=== PATIENT | female | born 1960 | race Caucasian/White ===

== ENCOUNTER 2018-04-16 18:44 | Emergency (ER) | payer OTHER, SELFPAY ==
[2018-04-16 18:49] VITALS: BP 158/88; PULSE 93; RESP 18; TEMP 36.7; O2SAT 94
--- NOTE | 2018-04-16 19:26 | W.ED.GENAD ---
Discharge Plan Disposition Patient Disposition: OTHER Discharge Details Chief Complaint: ETOHWithdr Clinical Impression: Acute alcohol intoxication Primary Care Provider: Sharon Arias ED Provider: Jona Miramontes Meds and Carlos A Rx's Prescriptions: No Action multivitamin [Daily Multi-Vitamin] 1 EACH tablet 1 ea PO DAILY RF: 0 cholecalciferol (vitamin D3) 1,000 UNIT tablet 1,000 unit PO DAILY RF: 0 milk thistle seed extract 200 MG capsule 480 mg PO DAILY RF: 0 lamotrigine [Lamictal] 25 MG tablet 25 mg PO DAILY Qty: 90 RF: 3 topiramate 100 MG tablet 100 mg PO BID Qty: 180 RF: 3 naltrexone 50 MG tablet 50 mg PO DAILY Qty: 90 RF: 0 nadolol 20 MG tablet 20 mg PO DAILY Qty: 90 RF: 3 nitrofurantoin macrocrystal [Macrodantin] 100 MG capsule 100 mg PO ONCE Qty: 12 RF: 3 folic acid 1 MG tablet 1 mg PO DAILY RF: 0 Discharge Instructions Instructions: Alcohol Intoxication (ED) Additional Instructions: Please stop abusing alcohol. Please followup with [facility] . Please contact your primary care physician to arrange follow-up. Return to the ER for any worsening or new concerning symptoms. Medical Decision Making <Kedar Mora MD - Last Filed: 04/16/18 20:11> [facility] Narrative Medical decision making narrative: 57yo female with history of alcohol here with acute alcohol intoxication and anxiety. No signs of which A medical screening exam was performed other than intoxication, I do not find any acute medical condition on assessment I spoke with Elyse at [facility] regarding PIP placement -she requests a blood alcohol level be checked. Plan will be for transfer was sure if to PIP bed. Flo Cary in [facility] and unfortunately no one was available tonight. I will provide contact information to [facility] to assist patient with rehab placement should she desire to pursue rehab. HPI - General Adult <Kedar Mora MD - Last Filed: 04/16/18 20:11> General Date/Time Provider Initiated Documentation: 04/16/18 18:54. Information obtained by: patient. HPI Narrative: 57-year-old female presents with acute intoxication with alcohol. Patient notes that she drank too much vodka today. Patient states that she drinks vodka daily. She has been to inpatient rehab in the past. Patient is specifically requesting Ativan at this time noting that she does feel anxious. Patient denies trauma. History is somewhat limited as patient is not forthcoming and is intoxicated Patient denies homicidality and suicidality. No hallucinations. Life stressors include recently left. Related Data Home Medications Medication Instructions Recorded Confirmed multivitamin [Daily Multi-Vitamin] 1 ea PO DAILY 02/14/16 04/16/18 cholecalciferol (vitamin D3) 1,000 unit PO DAILY 05/14/16 04/16/18 milk thistle seed extract 480 mg PO DAILY 05/14/16 04/16/18 Previous Rx's Medication Instructions Recorded folic acid 1 mg PO DAILY tab 04/30/17 lamotrigine [Lamictal] 25 mg PO DAILY #90 tab-cap 05/07/17 topiramate 100 mg PO BID #180 tab-cap 05/17/17 naltrexone 50 mg PO DAILY #90 tab-cap 07/22/17 nadolol 20 mg PO DAILY #90 tab-cap 08/09/17 nitrofurantoin macrocrystal 100 mg PO ONCE #12 cap 03/03/18 [Macrodantin] Allergies Allergy/AdvReac Type Severity Reaction Status Date / Time oxcarbazepine Allergy Skin Rash Unverified 04/16/18 18:53 [From Trileptal] meperidine HCl [From Demerol] AdvReac weird Unverified 04/16/18 18:53 dreams General Stated Complaint: ETOHWithdr JONNY: 3 Review of Systems <Kedar Mora MD - Last Filed: 04/16/18 20:11> Review of Systems ROS limited as patient not forthcoming with history. She denies pain. Cardiovascular Denies chest pain Gastrointestinal Denies abdominal pain, Denies nausea and Denies vomiting Neurologic Denies seizure-like activity Psychiatric Reports anxiety Exam <Kedar Mora MD - Last Filed: 04/16/18 20:11> Const General: anxious HENMT Head: normocephalic and atraumatic Eyes Pupils: PERRL Neck Neck: normal visual inspection Resp Effort & Inspection: normal respiratory effort Auscultation: clear to auscultation bilaterally Cardio Rate: regular rate Rhythm: regular rhythm Heart Sounds: S1 normal and S2 normal Skin Other: warm and dry Neuro General: alert, awake, tone normal, moves all extremities and other (no tremor) Speech: other (slurred) Gait: other (able to ambulate unassisted) Extrem General: no pedal edema Psych Speech and Movement: not agitated and slurred speech Affect: anxious affect Course <Kedar Mora MD - Last Filed: 04/16/18 20:11> Vital Signs Temperature 36.7 C 04/16/18 18:49 Pulse 93 H 04/16/18 18:49 Respiratory Rate 18 04/16/18 18:49 Blood Pressure 158/88 H 04/16/18 18:49 Pulse Oximetry 94 L 04/16/18 18:49 Temperature 36.7 C 04/16/18 18:49 Pulse 93 H 04/16/18 18:49 Respiratory Rate 18 04/16/18 18:49 Blood Pressure 158/88 H 04/16/18 18:49 Pulse Oximetry 94 L 04/16/18 18:49 Sign Out <Kedar Mora MD - Last Filed: 04/16/18 20:11> Sign Out Data: Sign Out Comment: Plan for transfer to PIP bed. Etoh level pending. Last updated by Kedar Mora MD at 04/16/18 20:09 Post-Handoff Eval: Patient signed out pending alcohol level which came back at 370. She was seen by mental health and has been taken into protective custody [facility] bed to sober up.
--- NOTE | 2018-04-16 19:40 | ED.GENADUL_ITS ---
Discharge Plan Disposition Patient Disposition: OTHER Discharge Details Chief Complaint: ETOHWithdr Clinical Impression: Acute alcohol intoxication Primary Care Provider: Sharon Arias ED Provider: Jona Miramontes Meds and Carlos A Rx's Prescriptions: No Action multivitamin [Daily Multi-Vitamin] 1 EACH tablet 1 ea PO DAILY RF: 0 cholecalciferol (vitamin D3) 1,000 UNIT tablet 1,000 unit PO DAILY RF: 0 milk thistle seed extract 200 MG capsule 480 mg PO DAILY RF: 0 lamotrigine [Lamictal] 25 MG tablet 25 mg PO DAILY Qty: 90 RF: 3 topiramate 100 MG tablet 100 mg PO BID Qty: 180 RF: 3 naltrexone 50 MG tablet 50 mg PO DAILY Qty: 90 RF: 0 nadolol 20 MG tablet 20 mg PO DAILY Qty: 90 RF: 3 nitrofurantoin macrocrystal [Macrodantin] 100 MG capsule 100 mg PO ONCE Qty: 12 RF: 3 folic acid 1 MG tablet 1 mg PO DAILY RF: 0 Discharge Instructions Instructions: Alcohol Intoxication (ED) Additional Instructions: Please stop abusing alcohol. Please followup with [facility] . Please contact your primary care physician to arrange follow-up. Return to the ER for any worsening or new concerning symptoms. Medical Decision Making <Kedar Mora MD - Last Filed: 04/16/18 20:11> [facility] Narrative Medical decision making narrative: 57yo female with history of alcohol here with acute alcohol intoxication and anxiety. No signs of which A medical screening exam was performed other than intoxication, I do not find any acute medical condition on assessment I spoke with Elyse at [facility] regarding PIP placement -she requests a blood alcohol level be checked. Plan will be for transfer was sure if to PIP bed. Flo Cary in [facility] and unfortunately no one was available tonight. I will provide contact information to [facility] to assist patient with rehab placement should she desire to pursue rehab. HPI - General Adult <Kedar Mora MD - Last Filed: 04/16/18 20:11> General Date/Time Provider Initiated Documentation: 04/16/18 18:54 . Information obtained by: patient . HPI Narrative: 57-year-old female presents with acute intoxication with alcohol. Patient notes that she drank too much vodka today. Patient states that she drinks vodka daily. She has been to inpatient rehab in the past. Patient is specifically requesting Ativan at this time noting that she does feel anxious. Patient denies trauma. History is somewhat limited as patient is not forthcoming and is intoxicated Patient denies homicidality and suicidality. No hallucinations. Life stressors include recently left. Related Data Home Medications Medication Instructions Recorded Confirmed multivitamin [Daily Multi-Vitamin] 1 ea PO DAILY 02/14/16 04/16/18 cholecalciferol (vitamin D3) 1,000 unit PO DAILY 05/14/16 04/16/18 milk thistle seed extract 480 mg PO DAILY 05/14/16 04/16/18 Previous Rx's Medication Instructions Recorded folic acid 1 mg PO DAILY tab 04/30/17 lamotrigine [Lamictal] 25 mg PO DAILY #90 tab-cap 05/07/17 topiramate 100 mg PO BID #180 tab-cap 05/17/17 naltrexone 50 mg PO DAILY #90 tab-cap 07/22/17 nadolol 20 mg PO DAILY #90 tab-cap 08/09/17 nitrofurantoin macrocrystal 100 mg PO ONCE #12 cap 03/03/18 [Macrodantin] Allergies Allergy/AdvReac Type Severity Reaction Status Date / Time oxcarbazepine Allergy Skin Rash Unverified 04/16/18 18:53 [From Trileptal] meperidine HCl [From Demerol] AdvReac weird Unverified 04/16/18 18:53 dreams General Stated Complaint: ETOHWithdr JONNY: 3 Review of Systems <Kedar Mora MD - Last Filed: 04/16/18 20:11> Review of Systems ROS limited as patient not forthcoming with history. She denies pain. Cardiovascular Denies chest pain Gastrointestinal Denies abdominal pain, Denies nausea and Denies vomiting Neurologic Denies seizure-like activity Psychiatric Reports anxiety Exam <Kedar Mora MD - Last Filed: 04/16/18 20:11> Const General: anxious HENMT Head: normocephalic and atraumatic Eyes Pupils: PERRL Neck Neck: normal visual inspection Resp Effort & Inspection: normal respiratory effort Auscultation: clear to auscultation bilaterally Cardio Rate: regular rate Rhythm: regular rhythm Heart Sounds: S1 normal and S2 normal Skin Other: warm and dry Neuro General: alert, awake, tone normal, moves all extremities and other (no tremor) Speech: other (slurred) Gait: other (able to ambulate unassisted) Extrem General: no pedal edema Psych Speech and Movement: not agitated and slurred speech Affect: anxious affect Course <Kedar Mora MD - Last Filed: 04/16/18 20:11> Vital Signs Temperature 36.7 C 04/16/18 18:49 Pulse 93 H 04/16/18 18:49 Respiratory Rate 18 04/16/18 18:49 Blood Pressure 158/88 H 04/16/18 18:49 Pulse Oximetry 94 L 04/16/18 18:49 Temperature 36.7 C 04/16/18 18:49 Pulse 93 H 04/16/18 18:49 Respiratory Rate 18 04/16/18 18:49 Blood Pressure 158/88 H 04/16/18 18:49 Pulse Oximetry 94 L 04/16/18 18:49 Sign Out <Kedar Mora MD - Last Filed: 04/16/18 20:11> Sign Out Data: Sign Out Comment: Plan for transfer to PIP bed. Etoh level pending. Last updated by Kedar Mora MD at 04/16/18 20:09 Post-Handoff Eval: Patient signed out pending alcohol level which came back at 370. She was seen by mental health and has been taken into protective custody [facility] to sober up.
[2018-04-16 20:17] LABS: ETHANOL BLOOD 369.6 mg/dL (<3)
[2018-04-16 20:49] VITALS: BP 110/70; PULSE 80; RESP 18; TEMP 36.8; O2SAT 96
== END 2018-04-16 20:52 | disposition other institution (70) ==
LOC: ER 20:24
PROVIDERS: Student in an Organized Health Care Education/Training Program; Emergency Provider Emergency Medicine; PCP Nurse Practitioner Family
DX: F10.129 Alcohol abuse with intoxication, unspecified (principal); Y90.8 Blood alcohol level of 240 mg/100 ml or more; F41.9 Anxiety disorder, unspecified; I10 Essential (primary) hypertension
CPT/HCPCS: 36415; 99285; 80320; 99283

== ENCOUNTER 2018-06-13 11:12 | Outpatient (REF) | payer OTHER, SELFPAY ==
--- NOTE | 2018-06-13 10:15 | PAPFT_PTH ---
PATIENT: Soila Martinez LOC: N U#:[id number] AGE/SX: 58/F ROOM: RE06/13/[address]: Sharon Arias APRN : 1960 BED: DIS: 06/13/2018 SPEC #: [id number] RECD: 06/13/18 12:51 STATUS: [place] REMax #: [id number] CHRISS: 06/13/18 10:[address]: Sharon Arias DEPT: [facility] Cytology RECD BY: Cathie Randall Tissues: 1 - CX/ENDOCX FOR PAP SMEARS Procedures: PAP THIN PREP/UVM Screening HPV DNA PROBE Comments: [id number]
== END 2018-06-13 11:32 ==
LOC: LBN 11:12
PROVIDERS: PCP Nurse Practitioner Family; Visit Provider Nurse Practitioner Family
DX: Z12.4 Encounter for screening for malignant neoplasm of cervix (principal); Z11.51 Encounter for screening for human papillomavirus (HPV)
CPT/HCPCS: 88142; 87624

== ENCOUNTER 2018-06-21 00:51 | Outpatient (CLI) | payer OTHER, SELFPAY ==
--- NOTE | 2018-06-21 11:55 | DI.MAMMO_ITS ---
SYMPTOM/DIAGNOSIS: SCREENING, Z12.31 MAMMOGRAMS: Mammograms were interpreted according to the usual protocol including computer analysis with CAD system, tomosynthesis and C view imaging. The breasts are heterogeneously dense. No dominant mass or clumped microcalcification is identified in either breast. The current examination is compared with previous examinations including 03/2016 and there has been no gross interval change in appearance in comparison with the previous studies. CONCLUSION: No specific evidence of malignancy at this time. Routine screening examinations are suggested at yearly intervals in this age group according to the ACS/ACR guidelines. Category 1. Breast density, category C. MQSA ASSESSMENT OF FINDINGS: Negative. Category 1. Patient will receive a letter notifying them of these results. Bi-RADS category C. The breasts are heterogeneously dense, which may obscure small masses.
== END 2018-06-21 01:11 ==
PROVIDERS: PCP Nurse Practitioner Family; Visit Provider Nurse Practitioner Family
DX: Z12.31 Encounter for screening mammogram for malignant neoplasm of breast (principal)
CPT/HCPCS: 77063; 77067

== ENCOUNTER 2018-12-30 18:59 | Emergency (ER) | payer OTHER, SELFPAY ==
[2018-12-30 19:19] VITALS: BP 123/66; PULSE 54; RESP 16; TEMP 36.7; O2SAT 96
--- NOTE | 2018-12-30 19:47 | DI.CT_ITS ---
SYMPTOM/DIAGNOSIS: TRAUMA CERVICAL SPINE CT: CT examination of the cervical spine was performed with multi slice acquisition and multi planar reconstruction. No gross cervical mass or adenopathy is seen. Visualized lung apices are clear. Tracheal laryngeal structures appear intact. There are degenerative changes of the cervical spine with prominent calcified disc posteriorly at C 4-5 which may cause a mild central canal spinal stenosis. No acute fracture or dislocation in the cervical region. CONCLUSION: No evidence of acute cervical fracture. Marked degenerative changes noted. NONCONTRAST HEAD CT: A noncontrast cranial CT was performed. There is mild cerebral atrophy, most prominent frontally. There is no evidence of acute intracranial hemorrhage, mass effect or midline shift. Note is made of an old right occipital craniotomy. 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 The orbital and temporal bone structures appear intact. The visualized paranasal sinuses and mastoid air cells appear clear except for minimal fluid opacification of a couple of right mastoid air cells. CONCLUSION: No evidence of acute intracranial injury.
--- NOTE | 2018-12-30 19:49 | ED.GENADUL_ITS ---
Discharge Plan Disposition Patient Disposition: HOME Condition: Fair Discharge Details Chief Complaint: HeadInjury Clinical Impression: Laceration of scalp, Contusion of head, Concussion Primary Care Provider: Sharon Arias ED Provider: Bernie Nieves Home Meds and New Rx's Prescriptions: Continued topiramate 100 mg tablet 100 mg PO BID Qty: 180 RF: 3 carvedilol 3.125 mg tablet 3.125 mg PO BID Qty: 180 RF: 3 Shingrix (PF) 50 mcg/0.5 mL suspension for reconstitution 50 mcg IM .COMPLEX Qty: 1 RF: 1 cholecalciferol (vitamin D3) 1,000 UNIT tablet 1,000 unit PO DAILY RF: 0 milk thistle seed extract 200 MG capsule 480 mg PO DAILY RF: 0 nitrofurantoin macrocrystal [Macrodantin] 100 MG capsule 100 mg PO ONCE Qty: 12 RF: 3 folic acid 1 MG tablet 1 mg PO DAILY RF: 0 Discharge Instructions Instructions: Laceration (ED), Concussion (ED), Staple Care (ED) Additional Instructions: Encourage hydration. Tylenol and ibuprofen as needed for discomfort. Wash wound with running water and soap. Please do not go swimming or soak. Please monitor for signs of infection including redness, warmth, drainage, increased pain, fever/chills. If these or other new/worsening symptoms arise please seek care urgently once again. Please return in 1 week for suture removal. Referrals: Sharon Arias, CRAFT SUPERINTENDENT [Primary Care Provider] - Discharge Data Discharge Date/Time-TO BE ENTERED AT DEPARTURE: 12/30/18 21:41 Medical Decision Making Patient is 58-year-old female, accompanied by her , with chief complaint of head injury. She reports that she is been drinking today, had a proximally half 1/5 of vodka. Reports that she subsequently fell when she tripped at the top of the steps. States that she fell and struck her head against a stone hearth. Believes that she lost consciousness. Unknown exactly what time she fell but was in the last 4 hours. and subsequently came home and found her on the couch with a large amount of blood in her shirt. Patient has a laceration to the occipital aspect of her scalp. Appears intoxicated. Having difficulty with memory, slow to answer questions. Patient is alert and oriented x3. She is not anticoagulated. Patient does have history of AVM malformation with surgical intervention. Plan for CT. Remaining trauma exam is benign Please see procedure note. #6 radha placed. Patient tolerated this well. CT reviewed with no acute focal intracranial lesions noted. Cervical normal, no acute fractures or subluxations Discussed the findings with the patient and her . I advised that given the headache and mechanism of injury, patient sustained concussion. We discussed postconcussive care. I advised that she try to abstain from physical exertion, avoid screens as much as possible. Encourage hydration. Advised that she avoid alcohol. Advised care of radha. In particular, we discussed signs symptoms of infection when to seek care urgently once again. She will return for staple removal. Also discussed symptoms of worsening intracranial pathology. Patient will be with her and he is able to monitor her and bring her back if needed. All the questions and concerns were addressed and they are in agreement this plan. HPI General Mode of arrival: ambulatory . Date/Time Provider Initiated Documentation: 12/30/18 19:47 . Limitations to Documentation: altered mental status (patient intoxicated) . Information obtained by: patient, family () and RN notes reviewed . History of Present Illness 58 year old F presents to the emergency department with the chief complaint of head injury, described as moderate, with intensity rated at 8. Quality is described as aching, and is localized to the head. Patient reports no radiation. Patient started experiencing this hour(s) and it has been constant. No relieving factors improve symptom(s), No exacerbating factors reported . Patient notes denies confusion ( reports she has been appropriate although intoxicated), chest pain, cough, nausea/vomiting, rash, shortness of breath and weakness. Patient did receive the following treatments prior to arrival, none Related Data Home Medications Medication Instructions Recorded Confirmed cholecalciferol (vitamin D3) 1,000 unit PO DAILY 05/14/16 12/30/18 milk thistle seed extract 480 mg PO DAILY 05/14/16 12/30/18 folic acid 1 mg PO DAILY tab 04/30/17 12/30/18 nitrofurantoin macrocrystal 100 mg PO ONCE #12 cap 03/03/18 12/30/18 [Macrodantin] topiramate 100 mg tablet 100 mg PO BID #180 tab-cap 05/16/18 12/30/18 carvedilol 3.125 mg tablet 3.125 mg PO BID #180 tab-cap 06/13/18 12/30/18 varicella-zoster glycoE [id number] 50 mcg IM .COMPLEX #1 each 06/13/18 12/30/18 adj(PF) 50 mcg/0.5 mL IM susp, kit Previous Rx's Medication Instructions Recorded folic acid 1 mg PO DAILY tab 04/30/17 nitrofurantoin macrocrystal 100 mg PO ONCE #12 cap 03/03/18 [Macrodantin] topiramate 100 mg tablet 100 mg PO BID #180 tab-cap 05/16/18 carvedilol 3.125 mg tablet 3.125 mg PO BID #180 tab-cap 06/13/18 varicella-zoster glycoE [id number] 50 mcg IM .COMPLEX #1 each 06/13/18 adj(PF) 50 mcg/0.5 mL IM susp, kit Allergies Allergy/AdvReac Type Severity Reaction Status Date / Time oxcarbazepine Allergy Skin Rash Unverified 12/30/18 19:26 [From Trileptal] meperidine HCl [From Demerol] AdvReac weird Unverified 12/30/18 19:26 dreams General Stated Complaint: HeadInjury JONNY: 3 Review of Systems Constitutional Reports as per HPI, Denies chills, Denies fatigue, Denies fever(s), Reports headache(s) and Denies weakness Eyes Reports as per HPI, Denies blurry vision, Denies change in vision and Denies loss of vision ENT Denies abnormal hearing and Reports headache(s) Cardiovascular Reports as per HPI, Denies chest pain and Denies dyspnea Respiratory Reports as per HPI, Denies cough, Denies pain on inspiration, Denies pain with cough and Denies dyspnea Gastrointestinal Reports as per HPI, Denies abdominal pain, Denies nausea and Denies vomiting Genitourinary Reports as per HPI and Denies urinary incontinence Musculoskeletal Reports as per HPI Integumentary/Breasts Reports as per HPI, Denies rash and Reports other (scalp laceration) Neurologic Reports as per HPI, Denies abnormal hearing, Denies abnormal movements, Denies abnormal speech, Reports headache(s), Denies lack of coordination, Denies focal weakness, Denies loss of vision, Denies seizure-like activity, Denies paresthesias and Denies weakness Endocrine Denies fatigue [facility] Medical History Alcoholic cirrhosis of liver without ascites (Chronic 06/17/16) Alcohol use disorder (Chronic) Anxiety and depression (Chronic) Vitamin D deficiency, unspecified (Chronic) Seizure disorder (Chronic 05/15/15) Portal hypertension (Chronic) Hypomagnesemia (Chronic 11/06/15) Hyperlipidemia (Chronic 07/20/16) Frequent UTI (Chronic) Essential hypertension (Chronic 05/15/15) Esophageal varices without bleeding (Chronic 07/01/04) Bradycardia (Chronic 06/11/17) 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) Alcoholism Cirrhosis, alcoholic Esophageal varices Frequent UTI HTN (hypertension) Lactose intolerance Type 2 diabetes mellitus Surgical History section Social History Smoking/Tobacco Use Status: Never Alcohol Intake: former Drug use: Never Substance use type: does not use Details: pt states has been drinking today Adopted: No Caregiver/Support person: No Foster care: No Household members: spouse Number of Children: 2 current occupation: In home care Pets and animals: Yes Pets and animals: dog(s) Sexually active: Yes Current gender identity: female What type of physical activity do you participate in: walking Duration: 45-60 minutes/day Frequency: 3-4 times per week Seatbelt use: always Drive intox or ride w/intox truck driver flatbed: No Water heater temp set <120 deg: Yes Working smoke detector in home: Yes Fire extinguisher in home: Yes Carbon monox detector in home: Yes Firearms in home: No Do you feel safe at home: Yes Do you feel safe in your relationship?: Yes Exam Const General: cooperative, healthy appearing, comfortable, no acute distress, well developed, well groomed and intoxicated appearing Nutritional Appearance: average body habitus and well nourished Orientation: alert, awake and oriented x3 HENMT Head: no palpable skull fracture, atraumatic, no Cottrell's sign, no contusions, no hematomas, laceration (occipital 5cm in length, not actively bleeding), no occipital foramen tenderness, no palpable skull fracture, no raccoon eyes and No periorbital ecchymosis Ears: hearing grossly normal bilaterally, external ears normal and TM's normal bilaterally General nose exam: external nose normal Face and sinus: normal facial exam and face symmetric Mouth: oral mucosae normal, lip normal and tongue normal Throat: posterior oropharynx normal Eyes General: appearance normal, both eyes and all related structures Visual Townsend: normal visual townsend by confrontation Alignment and Position: alignment normal Periorbital: periorbital findings normal Eyelids: eyelids normal Conjunctivae: conjunctivae normal Pupils: PERRL EOM: EOM intact bilaterally Neck Neck: normal visual inspection, full ROM, no lymphadenopathy, no meningeal signs, trachea midline and supple Chest Chest: normal inspection of the chest, normal palpation of entire chest wall, no crepitus and no localized rib tenderness Resp Effort & Inspection: normal respiratory effort, able to speak in complete sentences and no respiratory distress Auscultation: clear to auscultation bilaterally, no rales, no rhonchi and no wheezes Cardio Rate: regular rate Rhythm: regular rhythm Heart Sounds: S1 normal and S2 normal GI Inspection: normal to inspection, no abdominal wall ecchymosis, no edema and non-distended Palpation: soft, no hepatosplenomegaly, not firm, no guarding, no pulsatile masses, not rigid and nontender Auscultation: normal bowel sounds Back/Spine/Pelvis Back: no CVA tenderness Cervical Spine: normal cervical lordosis and cervical ROM normal Thoracic/Lumbar Spine: thoracic and lumbar spine normal to inspection, thoraco- lumbar ROM normal, No thoraco-lumbar ROM limited, No thoraco-lumbar spasm and No thoracic spinal tenderness Pelvis: no pain with anterior-posterior compression and no pain with lateral compression Skin General skin exam: no rashes or lesions noted Lesions: no lesions Rashes: no rashes Trauma: no lacerations or abrasions Wounds: no wounds Neuro General: alert, awake, oriented x3, gait normal, tone normal and moves all extremities Cranial Nerves: CN's II-XI intact bilaterally Cognition: normal cognition Speech: speech normal Gait: normal gait Motor: muscle tone normal throughout and strength 5/5 throughout Sensory Exam: no sensory deficits noted (no saddle paresthesias) Extrem General: normal to inspection, full ROM, normal capillary refill, no pedal edema and no calf tenderness Psych Appearance: grossly normal and well kempt Mental Status: mental status grossly normal Speech and Movement: speech and movement normal Course Vital Signs Temperature 36.7 C 12/30/18 19:19 Pulse 54 L 12/30/18 19:19 Respiratory Rate 16 12/30/18 19:19 Blood Pressure 123/66 12/30/18 19:19 Pulse Oximetry 96 12/30/18 19:19 Temperature 36.7 C 12/30/18 19:19 Temperature Source Temporal Artery Scan 12/30/18 19:19 Pulse 54 L 12/30/18 19:19 Respiratory Rate 16 12/30/18 19:19 Respiratory Effort 12/30/18 19:23 Respiratory Depth Normal 12/30/18 19:23 Respiratory Pattern Normal 12/30/18 19:23 Blood Pressure 123/66 12/30/18 19:19 Pulse Oximetry 96 12/30/18 19:19 Oxygen Delivery Method Room Air 12/30/18 19:19 Oxygen Flow Rate 0 12/30/18 19:19 Pain Level 8 12/30/18 19:23 Procedures Laceration Laceration 1: Site: scalp Size (cm): 5 Description: irregular and clean Depth: simple, single layer Local Anesthetic: Lidocaine 1% Amount of anesthesia used (mL): 5 Pre-repair: wound explored, irrigated extensively and deep structures intact Skin layer closed with: other (radha, #6 )
--- NOTE | 2018-12-30 21:07 | DI.VRAD_ITS ---
EXAM: CT Head Without Contrast EXAM DATE/TIME: 12/30/2018 7:48 PM CLINICAL HISTORY: 58 years old, female; Injury or trauma; Initial encounter; Abrasion; Injury details: Fall hit head open laceration TECHNIQUE: Imaging protocol: Axial computed tomography images of the head without contrast. Coronal and sagittal reformatted images were created and reviewed. COMPARISON: CT HEAD WITHOUT CONTRAST 12/04/2013 2:48 PM FINDINGS: Brain: No hemorrhage. No significant white matter disease. No edema. Ventricles: No ventriculomegaly. Bones/joints: Status post remote right occipital craniotomy. Sinuses: Unremarkablel as visualized. No acute sinusitis. Mastoid air cells: Unremarkable as visualized. No mastoid effusion. Soft tissues: Unremarkable. IMPRESSION: No acute focal intracranial lesions. EXAM: CT Cervical Spine Without Contrast EXAM DATE/TIME: 12/30/2018 7:48 PM CLINICAL HISTORY: 58 years old, female; Injury or trauma; Initial encounter; Abrasion; Injury details: Fall hit head open laceration TECHNIQUE: Imaging protocol: Axial computed tomography images of the cervical spine without contrast. Coronal and sagittal reformatted images were created and reviewed. COMPARISON: CT HEAD WITHOUT CONTRAST 12/04/2013 2:48 PM FINDINGS: Vertebrae: No acute fracture. Normal alignment. Discs/Spinal canal/Neural foramina: Degenerative changes with disc space narrowing and osteophyte formation, disc space narrowing is most prominent at C5-C6 level. Soft tissues: Unremarkable. Lungs: Lung apices are normal. IMPRESSION: No acute fractures or subluxations. Degenerative changes. Dictated and Authenticated by: Darion Metzger MD. Ordering:JETT Gibbs MD
[2018-12-30 21:39] VITALS: BP 117/68; PULSE 50; RESP 16; O2SAT 99
== END 2018-12-30 21:41 | disposition home or self-care (01) ==
PROVIDERS: Emergency Provider Physician Assistant; PCP Nurse Practitioner Family
DX: S06.0X9A Concussion with loss of consciousness of unspecified duration, initial encounter (principal); S01.01XA Laceration without foreign body of scalp, initial encounter; F10.10 Alcohol abuse, uncomplicated; W10.8XXA Fall (on) (from) other stairs and steps, initial encounter; I10 Essential (primary) hypertension; E11.9 Type 2 diabetes mellitus without complications
CPT/HCPCS: 12002; 99284; 70450; 72125

== ENCOUNTER 2019-01-06 14:18 | Emergency (ER) | payer OTHER, SELFPAY ==
[2019-01-06 14:23] VITALS: BP 131/86; PULSE 75; RESP 16; TEMP 36.6; O2SAT 96
--- NOTE | 2019-01-06 14:34 | ED.GENADUL_ITS ---
Discharge Plan Disposition Patient Disposition: HOME Condition: Good Discharge Details Chief Complaint: SutureRem Clinical Impression: Encounter for removal of sutures Primary Care Provider: Sharon Arias ED Provider: Mega Mcgovern Home Meds and New Rx's Prescriptions: No Action topiramate 100 mg tablet 100 mg PO BID Qty: 180 RF: 3 carvedilol 3.125 mg tablet 3.125 mg PO BID Qty: 180 RF: 3 Shingrix (PF) 50 mcg/0.5 mL suspension for reconstitution 50 mcg IM .COMPLEX Qty: 1 RF: 1 cholecalciferol (vitamin D3) 1,000 UNIT tablet 1,000 unit PO DAILY RF: 0 milk thistle seed extract 200 MG capsule 480 mg PO DAILY RF: 0 nitrofurantoin macrocrystal [Macrodantin] 100 MG capsule 100 mg PO ONCE Qty: 12 RF: 3 folic acid 1 MG tablet 1 mg PO DAILY RF: 0 Discharge Instructions Instructions: Acute Wound Care (ED) Additional Instructions: Continue to keep wound clean and dry and watch for any signs of infection return immediately if these occur. Otherwise follow-up with your primary care provider as needed for reassessment. You may resume your normal activities given that you are otherwise asymptomatic Referrals: Sharon Arias, [place] LO DRIVER [Primary Care Provider] - (As needed for reassessment) Discharge Data Discharge Date/Time-TO BE ENTERED AT DEPARTURE: 01/06/19 14:40 Medical Decision Making Patient presenting the emergency department for staple removal. Patient had a head injury approximately 1 weeks ago and had 6 radha placed into her scalp. Patient denies any complications states that she has had no headache or neurological change and otherwise feels great. 6 radha removed from patient's scalp without any complications and patient tolerated removal well. Discussed with patient to continue to watch for any signs of infection otherwise she is follow-up with primary care provider as needed. After discussion of diagnosis and plan of care patient has no further needs, questions, or concerns and states clear understanding to return to the emergency department for any worsening symptoms. HPI General Mode of arrival: ambulatory . Date/Time Provider Initiated Documentation: 01/06/19 14:25 . Limitations to Documentation: no limitations . Information obtained by: patient, RN notes reviewed and old records reviewed . History of Present Illness 58 year old F presents to the emergency department with the chief complaint of Staple removal, Quality is described as other (denies pain), Patient started experiencing this week(s) (1) Patient notes no other symptoms.. Related Data Home Medications Medication Instructions Recorded Confirmed cholecalciferol (vitamin D3) 1,000 unit PO DAILY 05/14/16 12/30/18 milk thistle seed extract 480 mg PO DAILY 05/14/16 12/30/18 folic acid 1 mg PO DAILY tab 04/30/17 12/30/18 nitrofurantoin macrocrystal 100 mg PO ONCE #12 cap 03/03/18 12/30/18 [Macrodantin] topiramate 100 mg tablet 100 mg PO BID #180 tab-cap 05/16/18 12/30/18 carvedilol 3.125 mg tablet 3.125 mg PO BID #180 tab-cap 06/13/18 12/30/18 varicella-zoster glycoE [id number] 50 mcg IM .COMPLEX #1 each 06/13/18 12/30/18 adj(PF) 50 mcg/0.5 mL IM susp, kit Previous Rx's Medication Instructions Recorded folic acid 1 mg PO DAILY tab 04/30/17 nitrofurantoin macrocrystal 100 mg PO ONCE #12 cap 03/03/18 [Macrodantin] topiramate 100 mg tablet 100 mg PO BID #180 tab-cap 05/16/18 carvedilol 3.125 mg tablet 3.125 mg PO BID #180 tab-cap 06/13/18 varicella-zoster glycoE [id number] 50 mcg IM .COMPLEX #1 each 06/13/18 adj(PF) 50 mcg/0.5 mL IM susp, kit Allergies Allergy/AdvReac Type Severity Reaction Status Date / Time oxcarbazepine Allergy Skin Rash Unverified 12/30/18 19:26 [From Trileptal] meperidine HCl [From Demerol] AdvReac weird Unverified 12/30/18 19:26 dreams General Stated Complaint: SutureRem JONNY: 5 Review of Systems Constitutional Denies chills and Denies fever(s) Musculoskeletal Denies arthralgias Integumentary/Breasts Reports as per HPI, Denies rash and Denies skin swelling [facility] Medical History Alcoholic cirrhosis of liver without ascites (Chronic 11/16/16) Alcohol use disorder (Chronic) Anxiety and depression (Chronic) Vitamin D deficiency, unspecified (Chronic) Seizure disorder (Chronic 05/15/15) Portal hypertension (Chronic) Hypomagnesemia (Chronic 11/06/15) Hyperlipidemia (Chronic 07/20/16) Frequent UTI (Chronic) Essential hypertension (Chronic 05/15/15) Esophageal varices without bleeding (Chronic 07/01/04) Bradycardia (Chronic 06/11/17) 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) Alcoholism Cirrhosis, alcoholic Esophageal varices Frequent UTI HTN (hypertension) Lactose intolerance Type 2 diabetes mellitus Surgical History section Family History Brother Mental disorder Social History Smoking/Tobacco Use Status: Never Alcohol Intake: former Drug use: Never Substance use type: does not use Details: pt states has been drinking today Adopted: No Caregiver/Support person: No Foster care: No Household members: spouse Number of Children: 2 current occupation: In home care Pets and animals: Yes Pets and animals: dog(s) Sexually active: Yes Current gender identity: female What type of physical activity do you participate in: walking Duration: 45-60 minutes/day Frequency: 3-4 times per week Seatbelt use: always Drive intox or ride 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 Water heater temp set <120 deg: Yes Working smoke detector in home: Yes Fire extinguisher in home: Yes Carbon monox detector in home: Yes Firearms in home: No Do you feel safe at home: Yes Do you feel safe in your relationship?: Yes Exam Const General: cooperative, comfortable and no acute distress Orientation: alert, awake and oriented x3 Skin Rashes: no rashes Trauma: laceration (Right occipital,healing well without erythema, purulence, dehiscence) Course Vital Signs Temperature 36.6 C 01/06/19 14:23 Pulse 75 01/06/19 14:23 Respiratory Rate 16 01/06/19 14:23 Blood Pressure 131/86 01/06/19 14:23 Pulse Oximetry 96 01/06/19 14:23 Temperature 36.6 C 01/06/19 14:23 Temperature Source Tympanic 01/06/19 14:23 Pulse 75 01/06/19 14:23 Respiratory Rate 16 01/06/19 14:23 Respiratory Effort 01/06/19 14:23 Blood Pressure 131/86 01/06/19 14:23 Blood Pressure Position Sitting 01/06/19 14:23 Pulse Oximetry 96 01/06/19 14:23 Oxygen Delivery Method Room Air 01/06/19 14:23 Oxygen Flow Rate 0 01/06/19 14:23 Pain Level 0 01/06/19 14:23
[2019-01-06 14:39] VITALS: BP 131/86; PULSE 75; RESP 16; TEMP 36.6; O2SAT 96
== END 2019-01-06 14:40 | disposition home or self-care (01) ==
PROVIDERS: Emergency Provider Nurse Practitioner Family; PCP Nurse Practitioner Family
DX: S01.01XD Laceration without foreign body of scalp, subsequent encounter (principal); W10.8XXD Fall (on) (from) other stairs and steps, subsequent encounter; Z48.02 Encounter for removal of sutures

== ENCOUNTER → 2019-02-03 08:57 | Outpatient (CLI) | payer OTHER, SELFPAY ==
[2019-02-03 09:16] LABS: Abs Immature Grans 0.01 k/cumm (0.0-0.09); Absolute Basophil Count 0.06 k/cumm (0.0-0.2); Absolute Eosinophil Count 0.15 k/cumm (0.0-0.7); Absolute Lymphocyte Count 1.15 k/cumm (1.2-3.4); Absolute Monocyte Count 0.33 k/cumm (0.11-0.7); Absolute Neutrophil Count 2.48 k/cumm (1.2-6.7); Basophils % 1.4; Eosinophils % 3.6; HCT 43.3 % (36.0-46.0); HGB 14.4 g/dL (12.0-15.5); Immature Grans % 0.2; Lymphocytes % 27.5; Mean Corp. HGB Concentration 33.3 g/dL (32.0-36.0); Mean Corpuscular Hemoglobin 29.9 pg (27.0-33.0); Mean Platelet Volume 9.5 fL (8.0-11.0); Monocytes % 7.9; Neutrophils % 59.4; Platelet Count 163 x1000/uL (130-400); RBC 4.81 m/cumm (4.00-5.20); RBC Distribution Width 14.7 % (11.7-14.6); White Blood Cell Count 4.18 k/cumm (4.4-10.8)
[2019-02-03 09:24] LABS: Prothrombin Time 9.9 sec (9.3-11.0)
[2019-02-03 10:12] LABS: ALT 20 U/L (12-78); AST 20 U/L (15-37); Albumin 3.4 g/dL (3.4-5.0); Alkaline Phosphatase 104 U/L (46-116); Anion Gap 10.1 mmol/L (3-11); BUN 17 mg/dL (7-18); Bilirubin, Total 0.7 mg/dL (0.2-1.0); CO2 26.9 mmol/L (21.0-32.0); CREATININE 0.91 mg/dL (0.55-1.02); Calcium 8.7 mg/dL (8.5-10.1); Chloride 110 mmol/L (98-107); Glucose 101 mg/dL (70-100); Potassium 4.1 mmol/L (3.5-5.1); Sodium 147 mmol/L (136-145); Total Protein 6.8 g/dL (6.4-8.2)
== END ==
PROVIDERS: PCP Nurse Practitioner Family; Visit Provider Nurse Practitioner Family
DX: K70.30 Alcoholic cirrhosis of liver without ascites (principal); R94.5 Abnormal results of liver function studies
CPT/HCPCS: 36415; 80053; 85025; 85610

== ENCOUNTER 2019-02-14 05:13 | Emergency (ER) | payer OTHER, SELFPAY ==
[2019-02-14 05:13] VITALS: BP 168/98; PULSE 88; RESP 16; TEMP 36.6; O2SAT 95
--- NOTE | 2019-02-14 05:25 | W.ED.GENAD ---
Discharge Plan Disposition Patient Disposition: HOME Condition: Stable Discharge Details Chief Complaint: Seizure Clinical Impression: Alcohol use disorder Primary Care Provider: Sharon Arias ED Provider: Nicolas Flores Home Meds and New Rx's Prescriptions: No Action topiramate 100 mg tablet 100 mg PO BID Qty: 180 RF: 3 Shingrix (PF) 50 mcg/0.5 mL suspension for reconstitution 50 mcg IM .COMPLEX Qty: 1 RF: 1 nitrofurantoin macrocrystal [Macrodantin] 100 mg capsule 100 mg PO ONCE Qty: 30 RF: 3 cholecalciferol (vitamin D3) 1,000 UNIT tablet 1,000 unit PO DAILY RF: 0 milk thistle seed extract 200 MG capsule 480 mg PO DAILY RF: 0 carvedilol 3.125 mg tablet 3.125 mg PO BID Qty: 180 RF: 3 folic acid 1 MG tablet 1 mg PO DAILY RF: 0 Discharge Instructions Instructions: Alcohol Use Disorder (ED) Additional Instructions: Please contact [facility] at [phone] if you want assistance with your alcohol use disorder. Also follow up with your primary care provider and you can also contact [facility] detox centers if you wish to pursue treatment. If you feel you are becoming more ill or are actively having severe withdrawal return to the emergency department for reevaluation Medical Decision Making 58 yo female with hx of seizure disorder, alcohol abuse, hld, who comes in with ems for reported seizures. EMs reports that she had an episode where she was shaking but awake and talking the entire time and what sounds based on report to have been a psychogenic seizure. She has a hx of seizures and states she has been taking her seizure meds and initially denied drinking alcohol for weeks but did have smell of alcohol on her breath. She told ems that she had multiple seizures yesterday but after I asked her further questions about the seizures and if they were witnessed she changed her story and states that she hasn't had seizures and that she is actually here because she would like to have detox for alcohol. She is caox4 and clinically sober on exam. She has no signs of trauma and a normal steady gait. I couldn't get a clear reason as to why she felt that she had to say initially she had seizures and she refused to give much detail to most questions. She denies si/hi and so do not feel she requires mental health eval. She has stable vitals, mild htn otherwise no tremors and hassteady gait so has no evidenec of active withdrawal so do not feel she meets admission criteria for tx of alcohol withdrawal. I advised her that for detox she has to call facilities herself and that I would give her numbers and numbers to local agencies that can assist her. She was advised that if she feels she is worsening or having worsening symptoms that suggest withdrawal she can always return to the emergency department for reevaluation Differential Diagnosis alcohol abuse, seizure disorder, request for detox HPI General Mode of arrival: EMS. Date/Time Provider Initiated Documentation: 02/14/19 05:25. Limitations to Documentation: no limitations. Information obtained by: patient. History of Present Illness 58 year old F presents to the emergency department with the chief complaint of wants help with detox, Patient started experiencing this day(s) (1) and it has been constant. No relieving factors improve symptom(s), No exacerbating factors reported . Patient notes no other symptoms.. Patient did receive the following treatments prior to arrival, none Related Data Home Medications Medication Instructions Recorded Confirmed cholecalciferol (vitamin D3) 1,000 unit PO DAILY 05/14/16 02/03/19 milk thistle seed extract 480 mg PO DAILY 05/14/16 02/03/19 folic acid 1 mg PO DAILY tab 04/30/17 02/03/19 topiramate 100 mg tablet 100 mg PO BID #180 tab-cap 05/16/18 02/03/19 varicella-zoster [id number] (PF) 50 50 mcg IM .COMPLEX #1 each 06/13/18 02/03/19 mcg/0.5 mL IM susp, kit carvedilol 3.125 mg tablet 3.125 mg PO BID #180 tab-cap 02/03/19 nitrofurantoin macrocrystal 100 mg 100 mg PO ONCE #30 tab-cap 02/03/19 02/03/19 capsule Previous Rx's Medication Instructions Recorded folic acid 1 mg PO DAILY tab 04/30/17 topiramate 100 mg tablet 100 mg PO BID #180 tab-cap 05/16/18 varicella-zoster [id number] (PF) 50 50 mcg IM .COMPLEX #1 each 06/13/18 mcg/0.5 mL IM susp, kit carvedilol 3.125 mg tablet 3.125 mg PO BID #180 tab-cap 02/03/19 nitrofurantoin macrocrystal 100 mg 100 mg PO ONCE #30 tab-cap 02/03/19 capsule Allergies Allergy/AdvReac Type Severity Reaction Status Date / Time oxcarbazepine Allergy Skin Rash Unverified 02/03/19 08:23 [From Trileptal] meperidine HCl [From Demerol] AdvReac weird Unverified 02/03/19 08:23 dreams General Stated Complaint: Seizure JONNY: 3 Review of Systems Review of Systems All systems reviewed & are unremarkable except as noted in HPI and below Constitutional Denies chills and Denies fever(s) Cardiovascular Denies chest pain and Denies dyspnea Respiratory Denies dyspnea Gastrointestinal Denies abdominal pain Musculoskeletal Denies joint swelling Integumentary/Breasts Denies rash Endocrine Denies heat intolerance [facility] Medical History (Updated 02/06/19 @ 08:15 by Sharon Arias NP) Alcohol use disorder (Chronic) Alcoholic cirrhosis of liver without ascites (Chronic 06/17/16) 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 07/31/16) Anxiety and depression (Chronic) Bradycardia (Chronic 06/11/17) Cirrhosis, alcoholic Esophageal varices Esophageal varices without bleeding (Chronic 07/01/04) Essential hypertension (Chronic 05/15/15) Frequent UTI Frequent UTI (Chronic) HTN (hypertension) Hyperlipidemia (Chronic 07/20/16) Hypomagnesemia (Chronic 11/06/15) IFG (impaired fasting glucose) (Chronic) Lactose intolerance Portal hypertension (Chronic) Seizure disorder (Chronic 05/15/15) Type 2 diabetes mellitus Vitamin D deficiency, unspecified (Chronic) Surgical History section Social History Smoking/Tobacco Use Status: Never Alcohol Intake: former Drug use: Never Substance use type: does not use Details: pt states has been drinking today Adopted: No Caregiver/Support person: No Foster care: No Household members: spouse Number of Children: 2 Communication Needs: None current occupation: In home care Pets and animals: Yes Pets and animals: dog(s) Sexually active: Yes Current gender identity: female What type of physical activity do you participate in: walking Duration: 45-60 minutes/day Frequency: 3-4 times per week Seatbelt use: always Drive intox or ride w/intox 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 Water heater temp set <120 deg: Yes Working smoke detector in home: Yes Fire extinguisher in home: Yes Carbon monox detector in home: Yes Firearms in home: No Do you feel safe at home: Yes Do you feel safe in your relationship?: Yes Exam Const General: no acute distress Orientation: alert HENMT Head: normal to inspection Ears: external ears normal General nose exam: external nose normal Mouth: moist mucous membranes Eyes General: appearance normal, both eyes and all related structures Neck Neck: normal visual inspection Resp Effort & Inspection: normal respiratory effort and able to speak in complete sentences Cardio Rate: regular rate Skin General skin exam: no rashes or lesions noted Neuro General: alert and oriented x3 Extrem General: normal to inspection Psych Affect: anxious affect Attitude: avoids eye contact Course Vital Signs Temperature 36.6 C 02/14/19 05:13 Pulse 88 02/14/19 05:13 Respiratory Rate 16 02/14/19 05:13 Blood Pressure 168/98 H 02/14/19 05:13 Pulse Oximetry 95 02/14/19 05:13 Temperature 36.6 C 02/14/19 05:13 Temperature Source Skin 02/14/19 05:13 Pulse 88 02/14/19 05:13 Respiratory Rate 16 02/14/19 05:13 Blood Pressure 168/98 H 02/14/19 05:13 Blood Pressure Position Sitting 02/14/19 05:13 Pulse Oximetry 95 02/14/19 05:13 Oxygen Delivery Method Room Air 02/14/19 05:13 Oxygen Flow Rate 0 02/14/19 05:13
--- NOTE | 2019-02-14 05:34 | NUR.NOTE ---
Nursing Note: Pt was very upset. Pt did not want to be discharged. Pt refused to take paperwork or let me go over her paperwork. Pt states stop talking Pt refused paperwork will mail it to her. Discharge paperwork along with a list of detox centers will be mailed out. Pt ambulated out the door with steady gait.
[2019-02-14 05:36] VITALS: BP 168/98; PULSE 88; RESP 16; O2SAT 95
== END 2019-02-14 05:34 | disposition home or self-care (01) ==
LOC: ER 05:34
PROVIDERS: Emergency Provider Emergency Medicine; PCP Nurse Practitioner Family
DX: G40.909 Epilepsy, unspecified, not intractable, without status epilepticus (principal); F10.10 Alcohol abuse, uncomplicated; I10 Essential (primary) hypertension
CPT/HCPCS: 99282

== ENCOUNTER 2019-02-18 10:26 | Emergency (ER) | payer OTHER, SELFPAY ==
[2019-02-18] VITALS (69 sets, daily range): BP systolic 71–187; BP diastolic 11–101; PULSE 68–98; RESP 16–29; TEMP 37; O2SAT 84–99
--- NOTE | 2019-02-18 10:35 | NUR.NOTE ---
at bedside for eval Nursing Note:
--- NOTE | 2019-02-18 10:39 | NUR.NOTE ---
Nursing Note: pt resting in bed, with MD at bedside to obtain HPI, pt states that she called the ambulance because her head and back hurts. pt states that her dog got into a fight with another dog three weeks ago and she fell and hit the back of her head when she tried to break them apart. Pt states that she also had a seizure this morning. pt states that she also has been abusing ETOH and marijuana. hx epilepsy.
--- NOTE | 2019-02-18 10:42 | DI.RAD_ITS ---
SYMPTOM/DIAGNOSIS: FALL, PAIN THORACIC SPINE: AP and lateral views. No acute fractures or subluxations are seen. There is a mild right convex curvature of the spine which may be positional vs scoliosis. Mild degenerative changes are seen in the spine. The paraspinal lines are intact. IMPRESSION: No acute fracture or subluxations in the thoracic spine.
--- NOTE | 2019-02-18 10:42 | DI.RAD_ITS ---
SYMPTOM/DIAGNOSIS: FALL. BACK PAIN LUMBAR SPINE: AP lateral, and bilateral oblique views. There are 5 lumbar type vertebral bodies. There is a compression deformity of the superior end plate of L2 with loss of approximately 10% of the height of the vertebral body. This is age indeterminate. No other acute fracture or dislocation is seen. Mild degenerative changes are seen in the spine. No spondylolysis or spondylolisthesis is seen. There are two rounded calcifications to the right of the L1, L2 disc space. These may represent vascular calcifications or gallstones. The soft tissues are unremarkable. Calcification in the abdominal aorta is noted. IMPRESSION: 1. Compression fracture deformity of the superior end plate of L2. This is age indeterminate. Follow up as clinically appropriate. This may include a CT scan and/or MRI, if no further films are available. 2. Calcifications to the right of the L1, L2 disc space. These may represent vascular calcifications vs gallstones.
--- NOTE | 2019-02-18 10:48 | DI.RAD_ITS ---
SYMPTOM/DIAGNOSIS: TTPJ ANTERIOR FRIAS RIGHT TIBIA AND FIBULA: There is an old healed distal fibular fracture. No acute fracture or dislocation or soft tissue abnormality is identified. IMPRESSION: No acute abnormality.
--- NOTE | 2019-02-18 10:49 | W.ED.GENAD ---
Discharge Plan Disposition Patient Disposition: HOME Condition: Improving Discharge Details Chief Complaint: Seizure Clinical Impression: Alcohol abuse, Hypomagnesemia, Acute hypokalemia Primary Care Provider: Sharon Arias ED Provider: Kedar Mora Home Meds and New Rx's Prescriptions: New chlordiazepoxide HCl 25 mg capsule 25 mg PO Q12H PRN (Reason: alcohol withdrawal) Qty: 13 RF: 0 thiamine HCl (vitamin B1) 100 mg tablet 100 mg PO DAILY Qty: 30 RF: 0 Continued topiramate 100 mg tablet 100 mg PO BID Qty: 180 RF: 3 nitrofurantoin macrocrystal [Macrodantin] 100 mg capsule 100 mg PO ONCE Qty: 30 RF: 3 cholecalciferol (vitamin D3) 1,000 UNIT tablet 1,000 unit PO DAILY RF: 0 milk thistle seed extract 200 MG capsule 480 mg PO DAILY RF: 0 carvedilol 3.125 mg tablet 3.125 mg PO BID Qty: 180 RF: 3 folic acid 1 MG tablet 1 mg PO DAILY RF: 0 Discharge Instructions Instructions: Hypokalemia (ED), Abuse of Alcohol (ED), Hypomagnesemia (ED) Additional Instructions: Please follow-up with [facility] nutritional health coach. Follow-up with your primary care physician. Call me on my arrange timely follow-up. Stop abusing alcohol. Use medication prescribed as a taper. Return to the ER for any worsening or new concerning symptoms. Referrals: Sharon Arias NP [Primary Care Provider] - Discharge Data Discharge Date/Time-TO BE ENTERED AT DEPARTURE: 02/18/19 17:55 Medical Decision Making 11:00 --58-year-old female with multiple medical problems including history of alcohol abuse, here after consuming vodka this morning with complaint of back pain and headache after fall 2 weeks ago. Patient also notes seizure today. Patient has had recent ED presentations where she initially complained of various things and was ultimately determined that she was here seeking inpatient detox. Patient is not currently in alcohol withdrawal. She in fact appears mildly intoxicated. I will check an alcohol level. I will give thiamine 100 mg IV. IV fluid. I will consult nutritional health coach regarding alcohol. Given her recent fall and challenging history with questionable reliability consider acute life-threatening intracranial traumatic hemorrhage. Plan to obtain CT of the head. Patient has diffuse back tenderness and does not seem to have any focal area that is particularly tender. She does have some bruising over her left thoracic upper back. I will check x-rays of the thoracic and lumbar spine. No cervical tenderness and full range of motion of the neck. Patient also notes some pain right anterior obrien. She is tender anterior obrien with some ecchymosis. Consider fracture. I will obtain x-ray. 12:30 --CT head interpreted by radiology: No acute intracranial abnormality. Stable right cerebellar atrophy.. X-ray of the lumbar spine interpreted by radiology: Anterior wedging L2 vertebral body age indeterminate. Calcifications to the right L1 and L2 vertebral body may represent gallstones or vascular calcifications. X-ray of the thoracic spine interpreted by radiology: No evidence for acute bony abnormality. Labs were reviewed and hypomagnesemia noted. Hypokalemia noted per. Plan to give magnesium 2 g IV. Will then follow with potassium IV. Patient did have some nausea here. She was given Zofran 4 mg IV and Ativan 1 mg IV. Patient notes that she is feeling better. head strength and conditioning coach is speaking with the patient. -- Repeat labs with improved potassium and magnesium now WNL. All results reviewed with the patient. Patient is to follow-up with her primary care physician. I encouraged her to call on Wednesday to arrange timely follow-up. Patient is also can be following up with nutritional health coach for further treatment of alcoholism. Disposition decision was made weighing the risks and benefits of hospitalization versus outpatient treatment, the risk for further decompensation, and the patient's wishes. The patient was stable and requested discharge. Prior to discharge, my usual and customary return precautions were reviewed with the patient - this included follow-up instructions and reason to return to the emergency department if condition worsens, does not improve as expected, or other new concerns arise. HPI General Mode of arrival: EMS. Date/Time Provider Initiated Documentation: 02/18/19 10:27. Limitations to Documentation: no limitations. Information obtained by: patient and EMS. HPI Narrative: 58-year-old female with history of multiple medical problems including alcohol use disorder, alcoholic cirrhosis, hypertension, seizure disorder, here with chief complaint of back pain. Patient notes that she fell about 2 weeks ago and injured her back during the fall. She notes she was walking her dog and got caught up in the lesion fell. She did hit her head. She did not black out. She has had associated headache over the past couple weeks. Patient does admit that she started drinking again and is been drinking excessively on a daily basis. She drank vodka this morning. History and review of systems is limited secondary to unreliable historian and concern for potential acute alcohol intoxication. Patient is interested in alcohol detox. Patient was seen here on 02/14/2019 in the ED and initially presented with various complaints and was ultimately determined that she was here seeking detoxification. She did not relay history of fall or back pain or headache at that time. When questioned about this, she specifically notes that she has not told anybody about her discomfort related to this fall. After inquiring patient also notes that she had a seizure this morning. Related Data Home Medications Medication Instructions Recorded Confirmed cholecalciferol (vitamin D3) 1,000 unit PO DAILY 05/14/16 02/18/19 milk thistle seed extract 480 mg PO DAILY 05/14/16 02/18/19 folic acid 1 mg PO DAILY tab 04/30/17 02/18/19 topiramate 100 mg tablet 100 mg PO BID #180 tab-cap 05/16/18 02/18/19 carvedilol 3.125 mg tablet 3.125 mg PO BID #180 tab-cap 02/03/19 02/18/19 nitrofurantoin macrocrystal 100 mg 100 mg PO ONCE #30 tab-cap 02/03/19 02/18/19 capsule chlordiazepoxide HCl 25 mg PO Q12H PRN #13 cap 02/18/19 thiamine HCl (vitamin B1) 100 mg PO DAILY #30 tab 02/18/19 Previous Rx's Medication Instructions Recorded folic acid 1 mg PO DAILY tab 04/30/17 topiramate 100 mg tablet 100 mg PO BID #180 tab-cap 05/16/18 carvedilol 3.125 mg tablet 3.125 mg PO BID #180 tab-cap 02/03/19 nitrofurantoin macrocrystal 100 mg 100 mg PO ONCE #30 tab-cap 02/03/19 capsule chlordiazepoxide HCl 25 mg PO Q12H PRN #13 cap 02/18/19 thiamine HCl (vitamin B1) 100 mg PO DAILY #30 tab 02/18/19 Allergies Allergy/AdvReac Type Severity Reaction Status Date / Time oxcarbazepine Allergy Skin Rash Unverified 02/03/19 08:23 [From Trileptal] meperidine HCl [From Demerol] AdvReac ahsan Unverified 02/03/19 08:23 dreams General Stated Complaint: Seizure JONNY: 3 Review of Systems Review of Systems Unreliable, patient is noting pain all over. She denies chest pain. No shortness of breath. No abdominal pain. No focal numbness or weakness. [facility] Medical History Alcohol use disorder (Chronic) Alcoholic cirrhosis of liver without ascites (Chronic 06/17/16) Alcoholism [id number] deficiency carrier (Chronic 07/31/16) Anxiety and depression (Chronic) Bradycardia (Chronic 06/11/17) Cirrhosis, alcoholic Esophageal varices Esophageal varices without bleeding (Chronic 07/01/04) Essential hypertension (Chronic 05/15/15) Frequent UTI Frequent UTI (Chronic) HTN (hypertension) Hyperlipidemia (Chronic 07/20/16) Hypomagnesemia (Chronic 11/06/15) IFG (impaired fasting glucose) (Chronic) Lactose intolerance Portal hypertension (Chronic) Seizure disorder (Chronic 05/15/15) Type 2 diabetes mellitus Vitamin D deficiency, unspecified (Chronic) Surgical History section Family History Brother Mental disorder Social History Smoking/Tobacco Use Status: Never Alcohol Intake: former Drug use: Never Substance use type: does not use Details: pt states has been drinking today Adopted: No Caregiver/Support person: No Foster care: No Household members: spouse Number of Children: 2 Communication Needs: None current occupation: In home care Pets and animals: Yes Pets and animals: dog(s) Sexually active: Yes Current gender identity: female What type of physical activity do you participate in: walking Duration: 45-60 minutes/day Frequency: 3-4 times per week Seatbelt use: always Drive intox or ride w/intox 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 Water heater temp set <120 deg: Yes Working smoke detector in home: Yes Fire extinguisher in home: Yes Carbon monox detector in home: Yes Firearms in home: No Do you feel safe at home: Yes Do you feel safe in your relationship?: Yes Exam Const General: cooperative and no acute distress HENMT Head: normocephalic and atraumatic Mouth: moist mucous membranes Eyes Conjunctivae: normal conjunctivae Sclera: normal sclerae EOM: EOM intact bilaterally Neck Neck: supple Resp Auscultation: clear to auscultation bilaterally, no rales, no rhonchi and no wheezes Cardio Jugular venous pressure: no JVD Rate: regular rate and not tachycardic Rhythm: regular rhythm Heart Sounds: murmur systolic II/ GI Palpation: soft, not firm, no guarding, no masses, not rigid and nontender Back/Spine/Pelvis Back: back tenderness (diffusely mild tenderness) Skin General skin exam: no rashes or lesions noted Neuro General: alert, awake, moves all extremities and CN's II-XI intact bilaterally Cranial Nerves: CN's II-XI intact bilaterally Motor: strength 5/5 throughout Sensory Exam: no sensory deficits noted Other: mild confusion Extrem General: no edema Right lower extremity: lower leg Details: tenderness (anterior obrien) and ecchymosis (ant obrien) Psych Affect: anxious affect Course Vital Signs Pulse Oximetry 96 02/18/19 10:20 Temperature 37.0 C 02/18/19 10:27 Temperature Source Temporal Artery Scan 02/18/19 10:27 Pulse 91 H 02/18/19 10:27 Respiratory Rate 16 02/18/19 10:27 Respiratory Effort Non-Labored 02/18/19 10:27 Respiratory Depth Normal 02/18/19 10:27 Blood Pressure 163/70 H 02/18/19 10:27 Blood Pressure Position Supine 02/18/19 10:27 Pulse Oximetry 99 02/18/19 10:27 Oxygen Delivery Method Room Air 02/18/19 10:27 Oxygen Flow Rate 0 02/18/19 10:27
[2019-02-18] MEDS: THIAMINE 100 MG in Normal Saline 100 ML 200 MG IVPB (10:59)
[2019-02-18] MEDS: Normal Saline 1,000 ML 1000 ML IV (11:00)
[2019-02-18 11:18] LABS: Absolute Basophil Count 0.05 k/cumm (0.0-0.2); Absolute Eosinophil Count 0.01 k/cumm (0.0-0.7); Absolute Monocyte Count 0.33 k/cumm (0.11-0.7); Absolute Neutrophil Count 1.98 k/cumm (1.2-6.7); Basophils % 1.6; Eosinophils % 0.3; HCT 41.4 % (36.0-46.0); HGB 14.1 g/dL (12.0-15.5); Lymphocytes % 25.2; Mean Corp. HGB Concentration 34.1 g/dL (32.0-36.0); Mean Corpuscular Hemoglobin 29.8 pg (27.0-33.0); Mean Corpuscular Volume 87.5 fL (80-95); Mean Platelet Volume 10.3 fL (8.0-11.0); Monocytes % 10.4; Neutrophils % 62.5; RBC 4.73 m/cumm (4.00-5.20); RBC Distribution Width 14.2 % (11.7-14.6); White Blood Cell Count 3.17 k/cumm (4.4-10.8)
--- NOTE | 2019-02-18 11:20 | DI.CT_ITS ---
SYMPTOM/DIAGNOSIS: FALL, HEADACHE CT BRAIN: Noncontrast. Comparison 12/30/18 There is again seen a small area of encephalomalacia involving the right cerebellum The ventricles and sulci are consistent with the patient's age. No acute territorial infarct, hemorrhage, midline shift or mass effect is identified. The ventricles are intact. The basilar cisterns are patent. There is an old right occipital craniotomy. No evidence of an acute fracture is seen. The visualized paranasal sinuses are clear as are the mastoid air cells. IMPRESSION: No acute intracranial process.
--- NOTE | 2019-02-18 11:22 | NUR.NOTE ---
Nursing Note: pt to CT
[2019-02-18 11:28] LABS: ALT 33 U/L (12-78); AST 54 U/L (15-37); Albumin 3.3 g/dL (3.4-5.0); Alkaline Phosphatase 106 U/L (46-116); Anion Gap 19.5 mmol/L (3-11); BUN 14 mg/dL (7-18); Bilirubin, Total 1.1 mg/dL (0.2-1.0); CO2 19.5 mmol/L (21.0-32.0); CREATININE 0.68 mg/dL (0.55-1.02); Calcium 8.8 mg/dL (8.5-10.1); Chloride 101 mmol/L (98-107); Glucose 130 mg/dL (70-100); Magnesium 1.3 mg/dL (1.8-2.4); Sodium 140 mmol/L (136-145); Total Protein 6.8 g/dL (6.4-8.2)
[2019-02-18 11:32] LABS: Potassium 2.9 mmol/L (3.5-5.1)
[2019-02-18 11:39] LABS: Platelet Count 59 x1000/uL (130-400)
[2019-02-18 11:42] LABS: INR 1.1 (0.9-1.1); Prothrombin Time 11.4 sec (9.3-11.0)
[2019-02-18] MEDS: MAGNESIUM SULFATE 2 GM/50 ML BAG IVPB (11:45)
[2019-02-18] MEDS: Ondansetron 4 MG/2 ML VIAL IVP (11:48)
[2019-02-18] MEDS: LORazepam 2 MG/ML VIAL 1 MG IVP (11:49)
--- NOTE | 2019-02-18 12:16 | DI.VRAD_ITS ---
EXAM: CT Head Without Contrast EXAM DATE/TIME: 02/18/2019 10:47 AM CLINICAL HISTORY: 58 years old, female; Pain; Headache not specified; Patient HX: Fall, headache TECHNIQUE: Imaging protocol: Computed tomography images of the head without contrast. Coronal and sagittal reformatted images were created and reviewed. Radiation optimization: All CT scans at this facility use at least one of these dose optimization techniques: automated exposure control; mA and/or kV adjustment per patient size (includes targeted exams where dose is matched to clinical indication); or iterative reconstruction. COMPARISON: CT HEAD CERVICAL SPINE WO 30/12/2018 20:15 FINDINGS: Brain: Stable right cerebellar atrophy. Ventricles: Unremarkable. No ventriculomegaly. Bones/joints: Old right occipital craniotomy. Sinuses: Visualized sinuses are unremarkable. No fluid levels. Mastoid air cells: Visualized mastoid air cells are well aerated. No mastoid effusion. Soft tissues: Unremarkable. IMPRESSION: No acute intracranial abnormality. Dictated and Authenticated by: Kalina Sheehan MD. Ordering:SARAH Thacker MD
--- NOTE | 2019-02-18 12:25 | DI.VRAD_ITS ---
EXAM: XR Lumbosacral Spine, 4 or 5 Views EXAM DATE/TIME: 02/18/2019 10:47 AM CLINICAL HISTORY: 58 years old, female; Patient HX: Low back pain, fell on right side. TECHNIQUE: Imaging protocol: XR of the lumbosacral spine, 4 or 5 views. COMPARISON: No relevant prior studies available. FINDINGS: Vertebrae: There are rounded calcifications to the right is L1-L2 vertebral bodies that could represent vascular calcifications or gallstones. There is anterior wedging of L2 vertebral body. Vasculature: There is calcification of the aorta. Soft tissues: Unremarkable. IMPRESSION: 1. Anterior wedging L2 vertebral body age indeterminate. 2. Calcifications to the right of L1 and 2 vertebral body may represent gall stones or vascular calcifications. Dictated and Authenticated by: Kalina Sheehan MD. Ordering:SARAH Thacker MD
--- NOTE | 2019-02-18 12:28 | DI.VRAD_ITS ---
EXAM: XR Thoracic Spine, 3 Views EXAM DATE/TIME: 02/18/2019 10:47 AM CLINICAL HISTORY: 58 years old, female; Pain in thoracic spine; Other: After fall TECHNIQUE: Imaging protocol: XR of the thoracic spine, 3 views. COMPARISON: No relevant prior studies available. FINDINGS: Vertebrae: Minimal scoliosis of the thoracic spine. There is mild degenerative changes at all levels of the thoracic spine. There is no evidence for acute fracture or subluxation. Soft tissues: Unremarkable. IMPRESSION: No evidence for acute bony injury. Dictated and Authenticated by: Kalina Sheehan MD. Ordering:SARAH Thacker MD
--- NOTE | 2019-02-18 12:30 | DI.VRAD_ITS ---
EXAM: XR Right Tibia and Fibula EXAM DATE/TIME: 02/18/2019 10:49 AM CLINICAL HISTORY: 58 years old, female; Lower leg; Patient HX: Right leg pain after fall on right side. TECHNIQUE: Imaging protocol: XR Right tibia and fibula. Views: 2 views. COMPARISON: No relevant prior studies available. FINDINGS: Bones/joints: There is a healed old fracture of the distal fibula. There is no evidence for acute bony injury. Soft tissues: Unremarkable. IMPRESSION: No evidence for acute bony injury. Dictated and Authenticated by: Kalina Sheehan MD. Ordering:SARAH Thacker MD
--- NOTE | 2019-02-18 12:38 | NUR.NOTE ---
Nursing Note: pt reports moderate improvement in symptoms after Ativan. cross country/track and field coach at bedside.
[2019-02-18] MEDS: Potassium Chloride 10 MEQ TABCR 20 MEQ PO (13:44)
[2019-02-18] MEDS: POTASSIUM CHLORIDE 20 MEQ/100 ML BAG 50 MEQ IVPB (13:46)
[2019-02-18 16:34] LABS: Anion Gap 10.3 mmol/L (3-11); BUN 11 mg/dL (7-18); CO2 21.7 mmol/L (21.0-32.0); CREATININE 0.48 mg/dL (0.55-1.02); Calcium 8.2 mg/dL (8.5-10.1); Chloride 106 mmol/L (98-107); Glucose 82 mg/dL (70-100); Potassium 4.4 mmol/L (3.5-5.1); Sodium 138 mmol/L (136-145)
--- NOTE | 2019-02-18 17:06 | NUR.NOTE ---
Nursing Note: call out to lab to add Magnesium level
[2019-02-18 17:16] LABS: Magnesium 1.8 mg/dL (1.8-2.4)
--- NOTE | 2019-02-18 17:30 | NUR.NOTE ---
Nursing Note: blood pressure 71/30 entered in ERROR. PT IS NOT HYPOTENSIVE
--- NOTE | 2019-02-19 03:39 | NUR.NOTE ---
Nursing Note: faxed referal to [facility] internal 02/19/19
== END 2019-02-18 17:55 | disposition home or self-care (01) ==
PROVIDERS: Emergency Provider Student in an Organized Health Care Education/Training Program; PCP Nurse Practitioner Family
DX: E83.42 Hypomagnesemia (principal); E87.6 Hypokalemia; F10.10 Alcohol abuse, uncomplicated; G40.909 Epilepsy, unspecified, not intractable, without status epilepticus; M54.5 Low back pain; W19.XXXA Unspecified fall, initial encounter; Y93.K1 Activity, walking an animal; I10 Essential (primary) hypertension; E11.9 Type 2 diabetes mellitus without complications
CPT/HCPCS: 36415; 80048; 80053; 93005; 96361; 96365; 96368; 99285; 70450; 72072; 72110; 73590; 80320; 83735; 85025; 85610; 93010; 99284; J2060; J2405; J3480

== ENCOUNTER 2019-03-05 18:05 | Emergency (ER) | payer OTHER, SELFPAY ==
[2019-03-05] VITALS (22 sets, daily range): BP systolic 115–134; BP diastolic 67–82; PULSE 53–81; RESP 12–23; TEMP 36.5; O2SAT 87–97
[2019-03-05 19:22] LABS: Abs Immature Grans 0.02 k/cumm (0.0-0.09); Absolute Basophil Count 0.14 k/cumm (0.0-0.2); Absolute Eosinophil Count 0.02 k/cumm (0.0-0.7); Absolute Lymphocyte Count 1.95 k/cumm (1.2-3.4); Absolute Neutrophil Count 3.04 k/cumm (1.2-6.7); Basophils % 2.6; Eosinophils % 0.4; HCT 45.4 % (36.0-46.0); HGB 15.2 g/dL (12.0-15.5); Immature Grans % 0.4; Lymphocytes % 35.6; Mean Corp. HGB Concentration 33.5 g/dL (32.0-36.0); Mean Corpuscular Hemoglobin 29.9 pg (27.0-33.0); Mean Corpuscular Volume 89.2 fL (80-95); Mean Platelet Volume 9.1 fL (8.0-11.0); Monocytes % 5.5; Neutrophils % 55.5; Platelet Count 149 x1000/uL (130-400); RBC 5.09 m/cumm (4.00-5.20); RBC Distribution Width 15.3 % (11.7-14.6); White Blood Cell Count 5.47 k/cumm (4.4-10.8)
[2019-03-05] MEDS: Ondansetron 4 MG/2 ML VIAL (19:32)
[2019-03-05 19:36] LABS: ALT 99 U/L (12-78); AST 67 U/L (15-37); Albumin 3.1 g/dL (3.4-5.0); Alkaline Phosphatase 94 U/L (46-116); Anion Gap 11.4 mmol/L (3-11); BUN 5 mg/dL (7-18); Bilirubin, Total 0.3 mg/dL (0.2-1.0); CO2 26.6 mmol/L (21.0-32.0); CREATININE 0.73 mg/dL (0.55-1.02); Calcium 7.9 mg/dL (8.5-10.1); Chloride 115 mmol/L (98-107); Glucose 124 mg/dL (70-100); Potassium 3.1 mmol/L (3.5-5.1); Sodium 153 mmol/L (136-145)
[2019-03-05 19:51] LABS: ETHANOL BLOOD 484.5 mg/dL (<3)
[2019-03-05] MEDS: Normal Saline 1,000 ML 1000 ML IV (19:53)
[2019-03-05 20:32] LABS: Bilirubin Negative (Negative); Blood Negative (Negative); Clarity Clear (Clear); Glucose Negative (Negative); Ketones Negative (Negative); Leukocyte Esterase Negative (Negative); Nitrite Negative (Negative); Urobilinogen 0.2 EU/dL (Up TO 0.2)
[2019-03-05 20:58] LABS: *AMPHETAMINES SCREEN URINE Negative (Negative); *BARBITURATES SCREEN URINE Negative (Negative); *BENZODIAZEPINES SCREEN URINE POSITIVE (Negative); Cannabinoids THC Negative (Negative); Cocaine Screen,Urine Negative (Negative); METHADONE URINE SCREEN Negative (Negative); OPIATES URINE SCREEN Negative (Negative)
[2019-03-05 21:02] LABS: Tricyclic Antidepressants Negative (Negative)
--- NOTE | 2019-03-05 21:20 | DI.RAD_ITS ---
SYMPTOMS/DIAGNOSIS: PAIN THORACIC SPINE: There is no evidence of fracture. The alignment appears normal. The visualized portions of the lungs appear clear. There is minimal scoliosis. IMPRESSION: No acute abnormality.
--- NOTE | 2019-03-05 21:53 | ED.GENADUL_ITS ---
Discharge Plan Disposition Patient Disposition: OTHER Condition: Stable Discharge Details Chief Complaint: AMS/LOC Clinical Impression: Alcohol use disorder Primary Care Provider: Sharon Arias ED Provider: Nicolas Flores Home Meds and New Rx's Prescriptions: No Action lamotrigine [Lamictal] 25 mg tablet 25 mg PO DAILY Qty: 90 RF: 0 acetaminophen 500 mg tablet 500 - 1,000 mg PO BID MDD 2000 mg PRN (Reason: pain) Qty: 90 RF: 0 topiramate 100 mg tablet 100 mg PO BID Qty: 180 RF: 3 nitrofurantoin macrocrystal [Macrodantin] 100 mg capsule 100 mg PO ONCE Qty: 30 RF: 3 cholecalciferol (vitamin D3) 1,000 UNIT tablet 1,000 unit PO DAILY RF: 0 milk thistle seed extract 200 MG capsule 480 mg PO DAILY RF: 0 carvedilol 3.125 mg tablet 3.125 mg PO BID Qty: 180 RF: 3 chlordiazepoxide HCl 25 mg capsule 25 mg PO Q12H PRN (Reason: alcohol withdrawal) Qty: 13 RF: 0 thiamine HCl (vitamin B1) 100 mg tablet 100 mg PO DAILY Qty: 30 RF: 0 folic acid 1 MG tablet 1 mg PO DAILY RF: 0 Discharge Instructions Instructions: Abuse of Alcohol (ED) Discharge Data Discharge Date/Time-TO BE ENTERED AT DEPARTURE: 03/05/19 23:45 Medical Decision Making <Mega Mcgovern NP - Last Filed: 03/06/19 10:29> Patient presenting to the emergency department at request of patient's neighbor due to being intoxicated and difficult to arouse. Patient appears severely intoxicated making it difficult for documentation but she states that she fell a couple days ago and her back hurts. Physical exam is unremarkable except for mid thoracic tenderness to her spine without step-off deformity, no focal neurological deficits are noted through limited exam but patient is moving all extremities. Plan to check labs and radiological imaging. Pending results patient given IV fluids per Review of labs show a severely intoxicated patient with ethanol level of 484, UDS does show patient is positive for benzos, UA is otherwise nondiagnostic, pat ient does have slightly elevated sodium, low potassium, elevated chloride, slightly elevated anion gap. Labs are otherwise unremarkable. Pending radiological imaging patient was asked if she had a consenting adult to be ordered to take her home and she stated she was not able to. Mental health was call assess patient for safety placement at the custodial if no consenting adult was able to take her. Radiological imaging and results were reviewed and no acute fractures noted. <Nicolas Flores MD - Last Filed: 03/05/19 23:07> pt clinically sober now and alcohol level is under 300, no neuro deficits, no si/hi. Will go to holding cell until sober HPI <Mega Mcgovern NP - Last Filed: 03/06/19 10:29> General Mode of arrival: EMS . Date/Time Provider Initiated Documentation: 03/05/19 18:22 . Limitations to Documentation: altered mental status . Information obtained by: EMS and RN notes reviewed . History of Present Illness 58 year old F presents to the emergency department with the chief complaint of Alcohol intoxication, described as similar to prior episodes, and is localized to the back. and it has been constant. Related Data Home Medications Medication Instructions Recorded Confirmed cholecalciferol (vitamin D3) 1,000 unit PO DAILY 05/14/16 02/18/19 milk thistle seed extract 480 mg PO DAILY 05/14/16 02/18/19 folic acid 1 mg PO DAILY tab 04/30/17 02/18/19 topiramate 100 mg tablet 100 mg PO BID #180 tab-cap 05/16/18 02/18/19 carvedilol 3.125 mg tablet 3.125 mg PO BID #180 tab-cap 02/03/19 02/18/19 nitrofurantoin macrocrystal 100 mg 100 mg PO ONCE #30 tab-cap 02/03/19 02/18/19 capsule chlordiazepoxide HCl 25 mg PO Q12H PRN #13 cap 02/18/19 thiamine HCl (vitamin B1) 100 mg PO DAILY #30 tab 02/18/19 Lamictal 25 mg tablet 25 mg PO DAILY #90 tab-cap NS 02/20/19 02/20/19 acetaminophen 500 mg tablet 500 - 1,000 mg PO BID PRN #90 02/20/19 02/20/19 tab-cap MDD 2000 mg Previous Rx's Medication Instructions Recorded folic acid 1 mg PO DAILY tab 04/30/17 topiramate 100 mg tablet 100 mg PO BID #180 tab-cap 05/16/18 carvedilol 3.125 mg tablet 3.125 mg PO BID #180 tab-cap 02/03/19 nitrofurantoin macrocrystal 100 mg 100 mg PO ONCE #30 tab-cap 02/03/19 capsule chlordiazepoxide HCl 25 mg PO Q12H PRN #13 cap 02/18/19 thiamine HCl (vitamin B1) 100 mg PO DAILY #30 tab 02/18/19 Lamictal 25 mg tablet 25 mg PO DAILY #90 tab-cap NS 02/20/19 acetaminophen 500 mg tablet 500 - 1,000 mg PO BID PRN #90 02/20/19 tab-cap MDD 2000 mg Allergies Allergy/AdvReac Type Severity Reaction Status Date / Time oxcarbazepine Allergy Skin Rash Unverified 03/05/19 18:17 [From Trileptal] meperidine HCl [From Demerol] AdvReac weird Unverified 03/05/19 18:17 dreams General Stated Complaint: AMS/LOC JONNY: 3 Review of Systems <Mega Mcgovern NP - Last Filed: 03/06/19 10:29> Review of Systems Unobtainable due to mental status PFSH <Mega Mcgovern NP - Last Filed: 03/06/19 10:29> Medical History Alcohol use disorder (Chronic) Alcoholic cirrhosis of liver without ascites (Chronic 06/17/16) 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) Anxiety and depression (Chronic) Bradycardia (Chronic 06/11/17) Cirrhosis, alcoholic Esophageal varices Esophageal varices without bleeding (Chronic 07/01/04) Essential hypertension (Chronic 05/15/15) Frequent UTI Frequent UTI (Chronic) HTN (hypertension) Hyperlipidemia (Chronic 07/20/16) Hypomagnesemia (Chronic 11/06/15) IFG (impaired fasting glucose) (Chronic) Lactose intolerance Portal hypertension (Chronic) Seizure disorder (Chronic 05/15/15) Type 2 diabetes mellitus Vitamin D deficiency, unspecified (Chronic) Surgical History section Family History Brother Mental disorder Social History Smoking/Tobacco Use Status: Never Alcohol Intake: current Alcohol Intake frequency: 3 or more drinks per day Alcohol type: hard liquor Drug use: Never Substance use type: does not use Adopted: No Caregiver/Support person: No Foster care: No Household members: spouse Number of Children: 2 Communication Needs: None current occupation: In home care Pets and animals: Yes Pets and animals: dog(s) Sexually active: Yes Current gender identity: female What type of physical activity do you participate in: walking Duration: 45-60 minutes/day Frequency: 3-4 times per week Seatbelt use: always Drive intox or ride w/intox driver service technician: No Water heater temp set <120 deg: Yes Working smoke detector in home: Yes Fire extinguisher in home: Yes Carbon monox detector in home: Yes Firearms in home: No Do you feel safe at home: Yes Exam <Mega Mcgovern NP - Last Filed: 03/06/19 10:29> Const General: disheveled, not ill appearing and intoxicated appearing Orientation: alert and confused Limitations: altered mental status [facility] Head: normal to inspection, normocephalic and atraumatic Face and sinus: normal facial exam and face symmetric Neck Neck: normal visual inspection, full ROM, trachea midline and nontender Resp Effort & Inspection: normal respiratory effort, able to speak in complete sentences and no respiratory distress Auscultation: clear to auscultation bilaterally Cardio Rate: regular rate Rhythm: regular rhythm Heart Sounds: S1 normal and S2 normal Back/Spine/Pelvis Thoracic/Lumbar Spine: paraspinal tenderness, No thoraco-lumbar spasm, thoracic spinal tenderness and No lumbar spinal tenderness Skin Trauma: no lacerations or abrasions Wounds: no wounds Neuro General: alert, oriented Patient Orientation: Person and Confused, moves all extremities, no focal motor deficits and confused Course <Mega Mcgovern NP - Last Filed: 03/06/19 10:29> Vital Signs Temperature 36.5 C 03/05/19 18:11 Pulse 66 03/05/19 18:11 Respiratory Rate 18 03/05/19 18:11 Blood Pressure 133/71 03/05/19 18:11 Pulse Oximetry 95 03/05/19 18:11 Temperature 36.5 C 03/05/19 18:11 Temperature Source Skin 03/05/19 18:11 Pulse 64 03/05/19 20:31 Pulse 68 03/05/19 20:31 Respiratory Rate 15 03/05/19 20:31 Respiratory Effort Non-Labored 03/05/19 18:21 Respiratory Depth Normal 03/05/19 18:21 Respiratory Pattern Normal 03/05/19 18:21 Blood Pressure 125/67 03/05/19 20:31 Blood Pressure Mean 82 03/05/19 20:31 Blood Pressure Position Supine 03/05/19 18:11 Pulse Oximetry 95 03/05/19 20:31 Oxygen Delivery Method Room Air 03/05/19 18:11 Oxygen Flow Rate 0 03/05/19 18:11 Lab/Test Results Lab/Test Results: Laboratory Tests Range/Units 03/05/19 03/05/19 03/05/19 19:06 19:06 20:00 WBC (4.4-10.8) k/cumm 5.47 RBC (4.00-5.20) m/cumm 5.09 Hgb (12.0-15.5) g/dL 15.2 Hct (36.0-46.0) % 45.4 MCV (80-95) fL 89.2 MCH (27.0-33.0) pg 29.9 MCHC (32.0-36.0) g/dL 33.5 RDW (11.7-14.6) % 15.3 H Plt Count (130-400) x1000/uL 149 MPV (8.0-11.0) fL 9.1 Immature Gran % 0.4 Neutrophils % 55.5 Lymphocytes % 35.6 Monocytes % 5.5 Eosinophils % 0.4 Basophils % 2.6 Absolute Neutrophils (1.2-6.7) k/cumm 3.04 Absolute Lymphocytes (1.2-3.4) k/cumm 1.95 Absolute Monocytes (0.11-0.7) k/cumm 0.30 Absolute Eosinophils (0.0-0.7) k/cumm 0.02 Absolute Basophils (0.0-0.2) k/cumm 0.14 Sodium (136-145) mmol/L 153 H Potassium (3.5-5.1) mmol/L 3.1 L Chloride (98-107) mmol/L 115 H Carbon Dioxide (21.0-32.0) mmol/L 26.6 Anion Gap (3-11) mmol/L 11.4 H BUN (7-18) mg/dL 5 L Creatinine (0.55-1.02) mg/dL 0.73 Estimated GFR/1.73 m2 (mL/min/1.73m2) >= 60.00 Glucose (70-100) mg/dL 124 H Calcium (8.5-10.1) mg/dL 7.9 L Total Bilirubin (0.2-1.0) mg/dL 0.3 AST (15-37) U/L 67 H ALT (12-78) U/L 99 H Alkaline Phosphatase (46-116) U/L 94 Total Protein (6.4-8.2) g/dL 7.0 Albumin (3.4-5.0) g/dL 3.1 L Urine Color (Yellow) Yellow Urine Clarity (Clear) Clear Urine pH (5-8) 7.0 Ur Specific [place] (1.005-1.025) 1.010 Urine Protein (Negative) mg/dL Negative Urine Ketones (Negative) mg/dL Negative Urine Blood (Negative) Negative Urine Nitrite (Negative) Negative Urine Bilirubin (Negative) Negative Urine Urobilinogen (Up TO 0.2) EU/dL 0.2 Ur Leukocyte Esterase (Negative) Negative Urine Glucose (Negative) mg/dL Negative Urine Opiates Screen (Negative) Urine Methadone Screen (Negative) Ur Barbiturates Screen (Negative) Ur Tricyclics Screen (Negative) Ur Amphetamines Screen (Negative) U Benzodiazepines Scrn (Negative) Urine Cocaine Screen (Negative) Ur THC Screen (Negative) Ethyl Alcohol (<3) mg/dL 484.5 Range/Units 03/05/19 20:00 WBC (4.4-10.8) k/cumm RBC (4.00-5.20) m/cumm Hgb (12.0-15.5) g/dL Hct (36.0-46.0) % MCV (80-95) fL MCH (27.0-33.0) pg MCHC (32.0-36.0) g/dL RDW (11.7-14.6) % Plt Count (130-400) x1000/uL MPV (8.0-11.0) fL Immature Gran % Neutrophils % Lymphocytes % Monocytes % Eosinophils % Basophils % Absolute Neutrophils (1.2-6.7) k/cumm Absolute Lymphocytes (1.2-3.4) k/cumm Absolute Monocytes (0.11-0.7) k/cumm Absolute Eosinophils (0.0-0.7) k/cumm Absolute Basophils (0.0-0.2) k/cumm Sodium (136-145) mmol/L Potassium (3.5-5.1) mmol/L Chloride (98-107) mmol/L Carbon Dioxide (21.0-32.0) mmol/L Anion Gap (3-11) mmol/L BUN (7-18) mg/dL Creatinine (0.55-1.02) mg/dL Estimated GFR/1.73 m2 (mL/min/1.73m2) Glucose (70-100) mg/dL Calcium (8.5-10.1) mg/dL Total Bilirubin (0.2-1.0) mg/dL AST (15-37) U/L ALT (12-78) U/L Alkaline Phosphatase (46-116) U/L Total Protein (6.4-8.2) g/dL Albumin (3.4-5.0) g/dL Urine Color (Yellow) Urine Clarity (Clear) Urine pH (5-8) Ur Specific [place] (1.005-1.025) Urine Protein (Negative) mg/dL Urine Ketones (Negative) mg/dL Urine Blood (Negative) Urine Nitrite (Negative) Urine Bilirubin (Negative) Urine Urobilinogen (Up TO 0.2) EU/dL Ur Leukocyte Esterase (Negative) Urine Glucose (Negative) mg/dL Urine Opiates Screen (Negative) Negative Urine Methadone Screen (Negative) Negative Ur Barbiturates Screen (Negative) Negative Ur Tricyclics Screen (Negative) Negative Ur Amphetamines Screen (Negative) Negative U Benzodiazepines Scrn (Negative) Positive Urine Cocaine Screen (Negative) Negative Ur THC Screen (Negative) Negative Ethyl Alcohol (<3) mg/dL Sign Out <Mega Mcgovern NP - Last Filed: 03/06/19 10:29> Sign Out Data: Sign Out Comment: Patient signed out to Dr. Flores pending reduction of alcohol level for patient to be discharged to sober adult or to correctional facility for further monitoring and sobering of patient. Last updated by Mega Mcgovern NP at 03/05/19 21:59
--- NOTE | 2019-03-05 21:57 | DI.VRAD_ITS ---
EXAM: XR Thoracic Spine, 3 Views EXAM DATE/TIME: 03/05/2019 20:58 CLINICAL HISTORY: 58 years old, female; Injury or trauma; Initial encounter; Blunt trauma (contusions or hematomas); Injury date: 03/05/19; Injury details: Fall with back pain TECHNIQUE: Imaging protocol: XR of the thoracic spine, 3 views. COMPARISON: CR XR thoracic spine complete 02/18/2019 11:26 FINDINGS: Vertebrae: No acute fracture or subluxation. Minor loss of height in the distal thoracic spine with no cortical step-offs appear stable, likely degenerative and chronic. Soft tissues: Normal. IMPRESSION: No acute bony pathology. Dictated and Authenticated by: Shasha Brothers MD. Ordering:ANA Ayoub MD
--- NOTE | 2019-03-05 22:18 | NUR.NOTE ---
Nursing Note: patient awake, cooperative, repositioned and settled for sleep.
== END 2019-03-05 23:45 | disposition other institution (70) ==
PROVIDERS: Nurse Practitioner Family; Emergency Provider Emergency Medicine; PCP Nurse Practitioner Family
DX: F10.229 Alcohol dependence with intoxication, unspecified (principal); Y90.8 Blood alcohol level of 240 mg/100 ml or more; M54.6 Pain in thoracic spine; E87.6 Hypokalemia; I10 Essential (primary) hypertension; E11.9 Type 2 diabetes mellitus without complications
CPT/HCPCS: 36415; 80053; 80307; 96361; 96374; 99284; 72072; 80320; 81003; 85025; J2405

== ENCOUNTER 2019-03-30 19:42 | Inpatient (IN) | payer OTHER, SELFPAY ==
[2019-03-30] VITALS (12 sets, daily range): BP systolic 126–146; BP diastolic 65–90; PULSE 76–118; RESP 15–28; TEMP 37.3–37.5; O2SAT 85–97
--- NOTE | 2019-03-30 20:02 | W.ED.GENAD ---
Discharge Plan Disposition Patient Disposition: [facility] INPATIENT Condition: Poor Discharge Details Chief Complaint: ETOHWithdr Clinical Impression: Alcohol withdrawal Primary Care Provider: Sharon Arias ED Provider: Jona Miramontes Meds and New Rx's Prescriptions: No Action lamotrigine [Lamictal] 25 mg tablet 25 mg PO DAILY Qty: 90 RF: 0 acetaminophen 500 mg tablet 500 - 1,000 mg PO BID MDD 2000 mg PRN (Reason: pain) Qty: 90 RF: 0 topiramate 100 mg tablet 100 mg PO BID Qty: 180 RF: 3 nitrofurantoin macrocrystal [Macrodantin] 100 mg capsule 100 mg PO ONCE Qty: 30 RF: 3 cholecalciferol (vitamin D3) 1,000 UNIT tablet 1,000 unit PO DAILY RF: 0 milk thistle seed extract 200 MG capsule 480 mg PO DAILY RF: 0 thiamine HCl (vitamin B1) 100 mg tablet 100 mg PO DAILY Qty: 30 RF: 0 folic acid 1 MG tablet 1 mg PO DAILY RF: 0 Medical Decision Making Patient presents with alcohol withdrawal stating she has not had a drink for 36 hours. She has previous history of withdrawal seizures and reports having one earlier today. She is anxious and tremulous and tachycardic here. She has aCIWA score initially of 8. We will establish IV and start a banana bag. Ativan 1 mg IV given. EKG laboratory studies ordered. Patient better with the Ativan. Heart rate has come down. Still anxious but tremor better. Laboratory studies significant for an alcohol level of 243. Clearly her last drink was not 36 hours ago. Liver function is elevated although not markedly so. Magnesium low at 1.5. Anion gap 18 with a bicarb of 23. Sodium potassium normal. EKG unremarkable. As the patient is exhibiting alcohol withdrawal symptoms with an alcohol level of 243 with history of seizures I feel she should be admitted for monitoring as she withdraws from alcohol. Case discussed with hospitalist who agrees. Patient admitted to the ICU. She was seen by a wrestling coach here in the ED prior to being admitted. Medical Records Medical records reviewed: Yes I reviewed the patient's medical records. Lab Data Lab results reviewed: Yes I reviewed the patient's lab results. ECG Data Attestation: I personally reviewed and interpreted this ECG (s) as follows: Prior ECG tracings: not available for review Interpretation: Sinus rhythm at 92. Low voltage QRS. Left axis. Normal intervals. Nonspecific ST changes. HPI General Mode of arrival: ambulatory. Date/Time Provider Initiated Documentation: 03/30/19 19:57. Limitations to Documentation: no limitations. Information obtained by: patient, RN notes reviewed and old records reviewed. HPI Narrative: Patient presents to ED with complaint of not feeling well from alcohol withdrawal. Patient has a previous history of alcohol withdrawal seizures, alcohol abuse/dependence with periods of sobriety in the past. Now reports that she has been drinking for months. Tells me she has not had a drink for 36 hours because she needs to stop drinking to fix the problems between herself and her . She complains of being anxious, tremulous, nauseated with diarrhea and generalized body pain. She denies being suicidal or homicidal. She reports having a seizure earlier today but cannot provide details. She is here with some neighbors who brought her in to help her get help. Related Data Home Medications Medication Instructions Recorded Confirmed cholecalciferol (vitamin D3) 1,000 unit PO DAILY 05/14/16 03/30/19 milk thistle seed extract 480 mg PO DAILY 05/14/16 03/30/19 folic acid 1 mg PO DAILY tab 04/30/17 03/30/19 topiramate 100 mg tablet 100 mg PO BID #180 tab-cap 05/16/18 03/30/19 nitrofurantoin macrocrystal 100 mg 100 mg PO ONCE #30 tab-cap 02/03/19 03/30/19 capsule thiamine HCl (vitamin B1) 100 mg PO DAILY #30 tab 02/18/19 03/30/19 Lamictal 25 mg tablet 25 mg PO DAILY #90 tab-cap NS 02/20/19 03/30/19 acetaminophen 500 mg tablet 500 - 1,000 mg PO BID PRN #90 02/20/19 03/30/19 tab-cap MDD 2000 mg Previous Rx's Medication Instructions Recorded folic acid 1 mg PO DAILY tab 04/30/17 topiramate 100 mg tablet 100 mg PO BID #180 tab-cap 05/16/18 nitrofurantoin macrocrystal 100 mg 100 mg PO ONCE #30 tab-cap 02/03/19 capsule thiamine HCl (vitamin B1) 100 mg PO DAILY #30 tab 02/18/19 Lamictal 25 mg tablet 25 mg PO DAILY #90 tab-cap NS 02/20/19 acetaminophen 500 mg tablet 500 - 1,000 mg PO BID PRN #90 02/20/19 tab-cap MDD 2000 mg Allergies Allergy/AdvReac Type Severity Reaction Status Date / Time oxcarbazepine Allergy Skin Rash Unverified 03/30/19 19:50 [From Trileptal] meperidine HCl [From Demerol] AdvReac weird Unverified 03/30/19 19:50 dreams General Stated Complaint: ETOHWithdr JONNY: 3 Review of Systems Review of Systems 05/15 Review of Systems completed and is negative except as stated above in HPI (Systems reviewed: Const, ENT, Resp, CV, GI, , MSK, Skin, Neuro, Psych) [facility] Medical History Alcohol use disorder (Chronic) Pt does not like AA, prefers [facility] Alcohol withdrawal seizure (Acute) Alcoholic cirrhosis of liver without ascites (Chronic 06/17/16) With portal HTN and esophageal varices Oeriu-1-ogymgvjkqka 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 Pradhan) Bradycardia (Chronic 06/11/17) Negative exercise stress test 06/11/2017 (carried out due to change in EKG) Esophageal varices without bleeding (Chronic 07/01/04) grade I per EGD 01/2005 Essential hypertension (Chronic 05/15/15) Frequent UTI (Chronic) Associated with intercourse. Takes nitrofurantoin after intercourse with good effect. Hyperlipidemia (Chronic 07/20/16) 05/2017 labwork: 10-year ASCVD risk = ~3.1% --> no statin indicated at this time Hypomagnesemia (Chronic 11/06/15) IFG (impaired fasting glucose) (Chronic) Portal hypertension (Chronic) Vitamin D deficiency, unspecified (Chronic) Surgical History section x2 Social History Smoking/Tobacco Use Status: Never Alcohol Intake: current Alcohol Intake frequency: 3 or more drinks per day Alcohol type: hard liquor Drug use: Never Substance use type: does not use Adopted: No Caregiver/Support person: No Foster care: No Household members: spouse Number of Children: 2 Communication Needs: None current occupation: In home care Pets and animals: Yes Pets and animals: dog(s) Sexually active: Yes Current gender identity: female What type of physical activity do you participate in: walking Duration: 45-60 minutes/day Frequency: 3-4 times per week Seatbelt use: always Drive intox or ride w/intox gravel truck driver: No Water heater temp set <120 deg: Yes Working smoke detector in home: Yes Fire extinguisher in home: Yes Carbon monox detector in home: Yes Firearms in home: No Do you feel safe at home: Yes Do you feel safe in your relationship?: Yes Exam Narrative Exam Narrative: Vitals: Afebrile. Tachycardic to 120. Otherwise normal vitals. Const: WDWN female in NAD but anxious and tremulous. HEENT: NC/AT. Normal facial exam. Eyes: Normal conjunctiva and sclera. Neck: Supple. Trachea midline. Lungs: Normal respiratory effort. Lungs are clear. Cor: RRR without murmur/gallop. Tachycardic. Good radial pulses. GI: Soft. NT/ND. No guarding or rebound. No RUQ tenderness. Neuro: A+O x 3. CN II - XII grossly in tact. Normal strength, sensation, speech and gait. Tremor present. Ext: No C/C/E. No deformity or tenderness. Skin: Warm and dry without rash. Course Vital Signs Temperature 99.1 F 03/30/19 19:46 Pulse 118 H 03/30/19 19:46 Respiratory Rate 20 03/30/19 19:46 Blood Pressure 140/90 03/30/19 19:46 Pulse Oximetry 97 03/30/19 19:46 Temperature 99.1 F 03/30/19 19:46 Temperature Source Temporal Artery Scan 03/30/19 19:46 Pulse 118 H 03/30/19 19:46 Respiratory Rate 20 03/30/19 19:46 Respiratory Effort Non-Labored 03/30/19 19:51 Respiratory Pattern Normal 03/30/19 19:51 Blood Pressure 140/90 03/30/19 19:46 Blood Pressure Position Sitting 03/30/19 19:46 Pulse Oximetry 97 03/30/19 19:46 Oxygen Delivery Method Room Air 03/30/19 19:46 Oxygen Flow Rate 0 03/30/19 19:46 Pain Level 5 03/30/19 19:46 Critical Care Time Critical Care Time: Yes Total Critical Care Time: 45 Attestation: Upon my evaluation, this patient had a high probability of imminent or life-threatening deterioration, which required my direct attention, intervention, and personal management. I have personally provided minutes of critical care time exclusive of time spent on separately billable procedures. Time includes review of laboratory data, radiology results, discussion with consultants, and monitoring for potential decompensation. Interventions were performed as documented above.
[2019-03-30 20:37] LABS: Abs Immature Grans 0.01 k/cumm (0.0-0.09); Absolute Basophil Count 0.05 k/cumm (0.0-0.2); Absolute Lymphocyte Count 1.52 k/cumm (1.2-3.4); Absolute Monocyte Count 0.28 k/cumm (0.11-0.7); Absolute Neutrophil Count 2.99 k/cumm (1.2-6.7); HCT 43.2 % (36.0-46.0); HGB 14.5 g/dL (12.0-15.5); Immature Grans % 0.2; Lymphocytes % 31.3; Mean Corp. HGB Concentration 33.6 g/dL (32.0-36.0); Mean Corpuscular Hemoglobin 30.8 pg (27.0-33.0); Mean Corpuscular Volume 91.7 fL (80-95); Monocytes % 5.8; Neutrophils % 61.7; Platelet Count 133 x1000/uL (130-400); RBC 4.71 m/cumm (4.00-5.20); RBC Distribution Width 15.2 % (11.7-14.6); White Blood Cell Count 4.85 k/cumm (4.4-10.8)
[2019-03-30 20:52] LABS: PTT Activated 22.6 sec (21.0-31.4); Prothrombin Time 10.1 sec (9.3-11.0)
[2019-03-30] MEDS: MAGNESIUM SULFATE 8.12 MEQ, MULTIVITAMIN 10 ML, THIAMINE 100 MG, FOLIC ACID 1 MG in Nor... 168.867 MG IV (20:55)
[2019-03-30] MEDS: Ondansetron 4 MG/2 ML VIAL IVP (20:56)
[2019-03-30] MEDS: LORazepam 2 MG/ML VIAL 1 MG IVP (20:56)
[2019-03-30] MEDS: Normal Saline Flush 10 ML SYR IVP (20:56)
[2019-03-30 20:58] LABS: ALT 62 U/L (14-59); AST 102 U/L (15-37); Albumin 3.3 g/dL (3.4-5.0); Alkaline Phosphatase 118 U/L (46-116); Anion Gap 18.2 mmol/L (3-11); BUN 16 mg/dL (7-18); Bilirubin, Total 0.5 mg/dL (0.2-1.0); CO2 22.8 mmol/L (21.0-32.0); Calcium 8.8 mg/dL (8.5-10.1); Chloride 103 mmol/L (98-107); ETHANOL BLOOD 243.3 mg/dL (<3); Glucose 156 mg/dL (70-100); Lipase 374 U/L (73-393); Magnesium 1.5 mg/dL (1.8-2.4); Potassium 3.9 mmol/L (3.5-5.1); Sodium 144 mmol/L (136-145); Total Protein 7.4 g/dL (6.4-8.2)
[2019-03-30 21:04] LABS: Troponin I < 0.05 ng/mL (0.00-0.06)
--- NOTE | 2019-03-30 23:43 | W.PM.HP.N ---
Date of service: 03/30/19 Time of Service: 23:44 Assessment and Plan (1) Alcohol withdrawal: Current visit: Yes Status: Acute continue use of CIWA monitoring for withdrawal symptoms; begin scheduled doses of Serax and use prn dosing of Ativan according to [facility] protocol; continue MVS, thiamine and folic acid. Qualifiers: Complication of substance-induced condition: uncomplicated Qualified Code(s): F10.230 - Alcohol dependence with withdrawal, uncomplicated (2) Hypomagnesemia: Current visit: No Status: Chronic replace w/ both iv and oral magnesium supplements and recheck levels (3) Seizure disorder: Current visit: No Status: Chronic no evidence of seizures although patient states that she had a recent one. I will check EEG in the a.m., monitor for alcohol seizure withdrawals. Theoretically the etiology of her prior seizures should be resolved w/ surgical repair of her AVM and resolution of her PRES syndrome. She is on lamictal but she says for psychological reasons. I will continue both her Topamax and Lamictal and monitor for any seizures. History of Present Illness Chief Complaint: I am detoxing and feeling weird Narrative: 58 yr old female w/ PMH of alcoholism, seizures (?related to prior AVM or PRES syndrome vs alcohol withdrawal), HTN, cirrhosis associated w/ esophageal varices and PRES syndrome and depression w/ anxiety. She continues to drink up to a fifth of vodka per day (per her admission) but states that her last drink was on Wednesday. Nevertheless she was brought into the ER by friends and her blood alcohol level was 243 mg/dL. She was tremulous and diaphoretic and complaining of generalized malaise and diarrhea and nausea. She alleged to have had a seizure earlier in the day. She was scoring an 8 on CIWA screening protocol. She has attempted to detox on her own w/out success and for that reason she came to the ER for help. Workup on the ER included routine labs including tox panel that showed benzodiazepines and no other drugs of abuse. Blood alcohol level of 243 mg/dL. CBC was unremarkable, CMP was remarkable for elevated AG of 18 w/ bicarbonate level of 22 and normal BUN and creatinine of 16 and 0.9 and glucose of 156 mg/dL, magnesium of 1.5 and modestly elevated transaminases of AST 102, ALT 62, alkaline phosphatase of 118, albumin 3.3. Lipase normal at 374. Normal protime 10.1 and aPtt 22.6. Treatment in the ER included Ativan 1 mg ivp magnesium 1 gm iv and iv fluids. The patient is now admitted to ICU for acute alcohol withdrawal treatment. 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 Pradhan) Bradycardia (Chronic 06/11/17) Negative exercise stress test 06/11/2017 (carried out due to change in EKG) Esophageal varices without bleeding (Chronic 07/01/04) grade I per EGD 01/2005 Essential hypertension (Chronic 05/15/15) Frequent UTI (Chronic) Associated with intercourse. Takes nitrofurantoin after intercourse with good effect. 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 2008 section x2 Family History Brother Mental disorder Bipolar disorder Social History Smoking/Tobacco Use Status: Never Alcohol Intake: current Alcohol Intake frequency: 3 or more drinks per day Alcohol type: hard liquor Drug use: Never Substance use type: does not use Adopted: No Caregiver/Support person: No Foster care: No Household members: spouse Number of Children: 2 Communication Needs: None current occupation: In home care Pets and animals: Yes Pets and animals: dog(s) Sexually active: Yes Current gender identity: female What type of physical activity do you participate in: walking Duration: 45-60 minutes/day Frequency: 3-4 times per week Seatbelt use: always Drive intox or ride w/intox pick up and delivery driver: No Water heater temp set <120 deg: Yes Working smoke detector in home: Yes Fire extinguisher in home: Yes Carbon monox detector in home: Yes Firearms in home: No Do you feel safe at home: Yes Do you feel safe in your relationship?: Yes Meds Home Medications Medication Instructions Recorded Confirmed Type cholecalciferol (vitamin D3) 1,000 unit PO DAILY 05/14/16 03/30/19 History milk thistle seed extract 480 mg PO DAILY 05/14/16 03/30/19 History folic acid 1 mg PO DAILY tab 04/30/17 03/30/19 Rx topiramate 100 mg tablet 100 mg PO BID #180 tab-cap 05/16/18 03/30/19 Rx nitrofurantoin macrocrystal 100 mg 100 mg PO ONCE #30 tab-cap 02/03/19 03/30/19 Rx capsule thiamine HCl (vitamin B1) 100 mg PO DAILY #30 tab 02/18/19 03/30/19 Rx Lamictal 25 mg tablet 25 mg PO DAILY #90 tab-cap NS 02/20/19 03/30/19 Rx acetaminophen 500 mg tablet 500 - 1,000 mg PO BID PRN #90 02/20/19 03/30/19 Rx tab-cap MDD 2000 mg Allergies Allergy/AdvReac Type Severity Reaction Status Date / Time oxcarbazepine Allergy Skin Rash Unverified 03/30/19 19:50 [From Trileptal] meperidine HCl [From Demerol] AdvReac weird Unverified 03/30/19 19:50 dreams Exam Const General: cooperative, no acute distress and anxious Nutritional Appearance: average body habitus Orientation: alert, awake and oriented x3 [facility] Head: normal to inspection Ears: hearing grossly normal bilaterally and TM's normal bilaterally General nose exam: external nose normal Mouth: oral mucosae normal Teeth and gingiva: dentition normal and gingiva normal Throat: posterior oropharynx normal Eyes General: appearance normal, both eyes and all related structures Visual Townsend: normal visual townsend by confrontation Alignment and Position: alignment normal Periorbital: periorbital findings normal Eyelids: eyelids normal Conjunctivae: conjunctivae normal Sclera: sclerae normal Cornea: corneas normal Pupils: PERRL, normal by confrontation and accommodation normal EOM: EOM intact bilaterally Direct ophthalmoscopy: normal light reflex Neck Neck: normal visual inspection, full ROM, no lymphadenopathy, trachea midline, supple and no JVD Thyroid: thyroid normal Carotids: normal carotid upstroke Lymphatic: no lymphadenopathy noted Resp Effort & Inspection: normal respiratory effort and able to speak in complete sentences Auscultation: clear to auscultation bilaterally Cardio Jugular venous pressure: no JVD Palpation: normal PMI Rate: regular rate Rhythm: regular rhythm Heart Sounds: S1 normal, S2 normal, normal, physiologic split S2 and murmur systolic early, soft, II/ and at the base Bruits: no abdominal aortic bruits and no carotid bruits Pulses: normal peripheral pulses GI Inspection: normal to inspection Palpation: soft and no hepatosplenomegaly Percussion: normal to percussion Rectal Exam - female: deferred Back/Spine/Pelvis Back: no CVA tenderness Cervical Spine: normal cervical lordosis Thoracic/Lumbar Spine: thoracic and lumbar spine normal to inspection Skin General skin exam: no rashes or lesions noted, elasticity normal and turgor normal Neuro General: alert, awake and oriented x3 Cranial Nerves: CN's II-XI intact bilaterally, PERRL, accommodation normal, EOM intact bilaterally, no nystagmus, facial strength normal, tongue midline, hearing normal, able to rotate head bilaterally and able to elevate shoulders bilaterally Cognition: normal cognition Speech: speech normal Motor: muscle tone normal throughout, strength 5/5 throughout, no pronator drift, no movement abnormalities noted, no tremors and No asterixis Sensory Exam: no sensory deficits noted Extrem General: normal to inspection, full ROM, normal capillary refill, no joint enlargement and no clubbing, cyanosis or edema Psych Appearance: grossly normal Mental Status: mental status grossly normal Speech and Movement: speech and movement normal Mood: anxious mood Affect: normal affect Attitude: cooperative Thought Process: normal Thought Content: normal Insight: fair Judgment: fair Results Labs : 03/30/19 20:30 03/30/19 20:30 Laboratory Results - last 24 hr 03/30/19 03/30/19 03/30/19 20:30 20:30 20:30 WBC 4.85 RBC 4.71 Hgb 14.5 Hct 43.2 MCV 91.7 MCH 30.8 MCHC 33.6 RDW 15.2 H Plt Count 133 MPV 10.0 Immature Gran % 0.2 Neutrophils % 61.7 Lymphocytes % 31.3 Monocytes % 5.8 Eosinophils % 0.0 Basophils % 1.0 Absolute Neutrophils 2.99 Absolute Lymphocytes 1.52 Absolute Monocytes 0.28 Absolute Eosinophils 0.00 Absolute Basophils 0.05 PT 10.1 INR 1.0 APTT 22.6 Sodium 144 Potassium 3.9 Chloride 103 Carbon Dioxide 22.8 Anion Gap 18.2 H BUN 16 Creatinine 0.90 Estimated GFR/1.73 m2 >= 60.00 Glucose 156 H Calcium 8.8 Magnesium 1.5 L Total Bilirubin 0.5 AST 102 H ALT 62 H Alkaline Phosphatase 118 H Troponin I < 0.05 Total Protein 7.4 Albumin 3.3 L Lipase 374 Ethyl Alcohol 243.3 Last Vital Signs Temp 37.5 C 03/30/19 23:00 Pulse 90 03/30/19 22:21 Resp 20 03/30/19 22:21 BP 132/71 03/30/19 22:21 Pulse Ox 97 03/30/19 22:21
[2019-03-31] VITALS (31 sets, daily range): BP systolic 121–153; BP diastolic 55–89; PULSE 67–92; RESP 12–25; TEMP 36.2–37; O2SAT 93–98
[2019-03-31] MEDS: DEXTROSE 5%-0.45% SALINE 1,000 ML 100 ML IV (00:31)
[2019-03-31] MEDS: MAGNESIUM SULFATE 2 GM/50 ML BAG IVPB (00:53)
[2019-03-31] MEDS: LORazepam 2 MG/ML VIAL IVP (04:50)
[2019-03-31] MEDS: Normal Saline Flush 10 ML SYR IVP (04:56)
[2019-03-31 07:00] LABS: HCT 38.7 % (36.0-46.0); HGB 12.6 g/dL (12.0-15.5); Mean Corp. HGB Concentration 32.6 g/dL (32.0-36.0); Mean Corpuscular Volume 92.1 fL (80-95); Mean Platelet Volume 10.5 fL (8.0-11.0); White Blood Cell Count 2.51 k/cumm (4.4-10.8)
[2019-03-31 07:12] LABS: ALT 47 U/L (14-59); AST 74 U/L (15-37); Albumin 2.7 g/dL (3.4-5.0); Alkaline Phosphatase 96 U/L (46-116); Anion Gap 11.5 mmol/L (3-11); BUN 14 mg/dL (7-18); Bilirubin, Direct 0.17 mg/dL (0.00-0.20); Bilirubin, Total 0.6 mg/dL (0.2-1.0); CO2 27.5 mmol/L (21.0-32.0); CREATININE 0.76 mg/dL (0.55-1.02); Calcium 7.7 mg/dL (8.5-10.1); Chloride 112 mmol/L (98-107); Glucose 114 mg/dL (70-100); Magnesium 2.3 mg/dL (1.8-2.4); PHOSPHORUS 2.7 mg/dL (2.6-4.7); Potassium 3.6 mmol/L (3.5-5.1); Sodium 151 mmol/L (136-145)
[2019-03-31 07:54] LABS: Platelet Count 79 x1000/uL (130-400)
--- NOTE | 2019-03-31 08:33 | W.PM.PROGNOT ---
Date of Service Date of service: 03/31/19 Time of Service: 16:45 Assessment and Plan (1) Alcohol withdrawal: Current visit: Yes Status: Acute Continue to monitor in the ICU for the next few hours - if no longer requiring IV ativan, [facility]. Continue multivitamins, thiamine and folic acid. Qualifiers: Complication of substance-induced condition: uncomplicated Qualified Code(s): F10.230 - Alcohol dependence with withdrawal, uncomplicated (2) Hypomagnesemia: Current visit: No Status: Chronic replete and monitor (3) Seizure disorder: Current visit: No Status: Chronic No seizures at this time. Discussed with [employer] technical lead senior developer - EEG would likely be invalidated by the fact that she is on scheduled benzodiazepines at this time. She should pursue an EEG once she is done with alcohol withdrawal. H/o seizures should be resolved w/ surgical repair of her AVM and resolution of her PRES syndrome. Continue Topamax and Lamictal (4) Shortness of breath: Current visit: Yes Status: Acute Obtain CXR. (5) DVT prophylaxis: Current visit: Yes Status: Acute TEDs + SCD's - chemical DVT ppx is contraindicated in a patient with a history of variceal bleeding. (6) Discharge planning issues: Current visit: Yes Status: Acute Full code Keep in ICU for now. Subjective Interval history since last seen: At 4:45, CIWA score was 12. Got 3 mg of ativan IV. At 6:30, CIWA was 4. She has not required IV ativan since then. Denies dizziness, chest pain, nausea, vomiting. C/o shortness of breath - her chronic. Feels better than yesterday. Exam Narrative Exam Narrative: General: A&Ox3, tremulous, pleasant, cooperative HEENT: EOMI, MMM Heart: RRR, + NINO Lungs: CTAB GI: Abdomen is soft, nontender, nondistended Extremities: no e/c/c BLe's Objective Objective Clinical Data: Abnormal lab results 03/30/19 03/30/19 03/31/19 Range/Units 20:30 20:30 06:30 WBC (4.4-10.8) k/cumm RDW 15.2 H (11.7-14.6) % Plt Count (130-400) x1000/uL Sodium 151 H (136-145) mmol/L Chloride 112 H (98-107) mmol/L Anion Gap 18.2 H 11.5 H (3-11) mmol/L Glucose 156 H 114 H (70-100) mg/dL Calcium 7.7 L (8.5-10.1) mg/dL Magnesium 1.5 L (1.8-2.4) mg/dL AST 102 H 74 H (15-37) U/L ALT 62 H (14-59) U/L Alkaline Phosphatase 118 H (46-116) U/L Total Protein 6.0 L (6.4-8.2) g/dL Albumin 3.3 L 2.7 L (3.4-5.0) g/dL 03/31/19 Range/Units 06:30 WBC 2.51 L D (4.4-10.8) k/cumm RDW 15.0 H (11.7-14.6) % Plt Count 79 L (130-400) x1000/uL Sodium (136-145) mmol/L Chloride (98-107) mmol/L Anion Gap (3-11) mmol/L Glucose (70-100) mg/dL Calcium (8.5-10.1) mg/dL Magnesium (1.8-2.4) mg/dL AST (15-37) U/L ALT (14-59) U/L Alkaline Phosphatase (46-116) U/L Total Protein (6.4-8.2) g/dL Albumin (3.4-5.0) g/dL Vital Signs Temperature 36.8 C 03/31/19 04:00 Temperature Source Temporal Artery Scan 03/31/19 04:00 Pulse 71 03/31/19 06:00 Pulse 71 03/31/19 06:00 Respiratory Rate 14 03/31/19 06:00 Respiratory Effort 03/31/19 04:00 Respiratory Depth Normal 03/31/19 04:00 Respiratory Pattern Normal 03/31/19 04:00 Blood Pressure 138/84 03/31/19 06:00 Blood Pressure Mean 98 03/31/19 06:00 Blood Pressure Position Sitting 03/30/19 19:46 Pulse Oximetry 93 L 03/31/19 06:00 Oxygen Delivery Method Nasal Cannula 03/31/19 04:00 Oxygen Flow Rate 2 03/31/19 04:00 Pain Level 0 03/31/19 04:00 Comment 03/30/19 23:45 Intake & Output 03/30/19 03/30/19 03/31/19 11:59 23:59 11:59 Intake Total 1098.2 / 1098.2 Balance 1098.2 / 1098.2 Weight 67.2 kg Intake: IV 1098.2 / 1098.2 Other: Comment No abnormailities per pt. Has not yet voided. Laboratory Results WBC 2.51 k/cumm (4.4-10.8) L D 03/31/19 06:30 RBC 4.20 m/cumm (4.00-5.20) 03/31/19 06:30 Hgb 12.6 g/dL (12.0-15.5) 03/31/19 06:30 Hct 38.7 % (36.0-46.0) 03/31/19 06:30 MCV 92.1 fL (80-95) 03/31/19 06:30 MCH 30.0 pg (27.0-33.0) 03/31/19 06:30 MCHC 32.6 g/dL (32.0-36.0) 03/31/19 06:30 RDW 15.0 % (11.7-14.6) H 03/31/19 06:30 Plt Count 79 x1000/uL (130-400) L 03/31/19 06:30 MPV 10.5 fL (8.0-11.0) 03/31/19 06:30 Immature Gran % 0.2 03/30/19 20:30 61.7 03/30/19 20:30 31.3 03/30/19 20:30 5.8 03/30/19 20:30 0.0 03/30/19 20:30 1.0 03/30/19 20:30 Absolute Neutrophils 2.99 k/cumm (1.2-6.7) 03/30/19 20:30 Absolute Lymphocytes 1.52 k/cumm (1.2-3.4) 03/30/19 20:30 Absolute Monocytes 0.28 k/cumm (0.11-0.7) 03/30/19 20:30 Absolute Eosinophils 0.00 k/cumm (0.0-0.7) 03/30/19 20:30 Absolute Basophils 0.05 k/cumm (0.0-0.2) 03/30/19 20:30 PT 10.1 sec (9.3-11.0) 03/30/19 20:30 INR 1.0 (0.9-1.1) 03/30/19 20:30 APTT 22.6 sec (21.0-31.4) 03/30/19 20:30 Sodium 151 mmol/L (136-145) H 03/31/19 06:30 Potassium 3.6 mmol/L (3.5-5.1) 03/31/19 06:30 Chloride 112 mmol/L (98-107) H 03/31/19 06:30 Carbon Dioxide 27.5 mmol/L (21.0-32.0) 03/31/19 06:30 11.5 mmol/L (3-11) H 03/31/19 06:30 BUN 14 mg/dL (7-18) 03/31/19 06:30 0.76 mg/dL (0.55-1.02) 03/31/19 06:30 >= 60.00 (mL/min/1.73m2) 03/31/19 06:30 Glucose 114 mg/dL (70-100) H 03/31/19 06:30 Calcium 7.7 mg/dL (8.5-10.1) L 03/31/19 06:30 Phosphorus 2.7 mg/dL (2.6-4.7) 03/31/19 06:30 Magnesium 2.3 mg/dL (1.8-2.4) 03/31/19 06:30 0.6 mg/dL (0.2-1.0) 03/31/19 06:30 0.17 mg/dL (0.00-0.20) 03/31/19 06:30 AST 74 U/L (15-37) H 03/31/19 06:30 ALT 47 U/L (14-59) 03/31/19 06:30 96 U/L (46-116) 03/31/19 06:30 < 0.05 ng/mL (0.00-0.06) 03/30/19 20:30 6.0 g/dL (6.4-8.2) L 03/31/19 06:30 2.7 g/dL (3.4-5.0) L 03/31/19 06:30 374 U/L (73-393) 03/30/19 20:30 Ethyl Alcohol 243.3 mg/dL (<3) 03/30/19 20:30
[2019-03-31] MEDS: Folic Acid 1 MG TAB PO (09:18)
[2019-03-31] MEDS: Topiramate 100 MG TAB PO ×2 (09:18→19:59)
[2019-03-31] MEDS: Cholecalciferol (Vitamin D3) 1,000 UNIT TAB 1000 UNITS PO (09:18)
[2019-03-31] MEDS: lamoTRIgine 25 MG TAB PO (09:18)
[2019-03-31] MEDS: Multivitamin TAB 1 TAB PO (09:18)
[2019-03-31] MEDS: Thiamine 100 MG TAB PO (09:18)
[2019-03-31] MEDS: DEXTROSE 5%-WATER 1,000 ML 75 ML IV (09:19)
--- NOTE | 2019-03-31 09:57 | PDOC.CMIN ---
- If Service Date Differs Date of service: 03/31/19 Time of Service: 09:58 Care Management Initial Assess REASON FOR HOSPITALIZATION:: Alcohol withdrawal PAST MEDICAL HISTORY/PAST SURGICAL HISTORY:: Medical History: Alcohol use disorder (Chronic). Pt does not like AA, prefers [facility]; patient alleges that she has an AA sponsor but has not been going to meetings. Alcohol withdrawal seizure (Acute). Alcoholic cirrhosis of liver without ascites (Chronic 06/17/16). With portal HTN and esophageal varices. 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 [place] [facility] [place]. Anxiety and depression (Chronic). Medication trials: Lexapro (didn't do much), lamictal low dose (didn't seem to do anything, though pt initially felt it helped stabilize mood; trial d/c 06/2018 and did not do well, so re-started 01/2019), trazodone for sleep (helped but then stopped because didn't need anymore). 06/28/2018 Psychiatry consult (Dr. Pradhan). Bradycardia (Chronic 06/11/17). Negative exercise stress test 06/11/2017 (carried out due to change in EKG). Esophageal varices without bleeding (Chronic 07/01/04). grade I per EGD 01/2005. Essential hypertension (Chronic 05/15/15). Frequent UTI (Chronic). Associated with intercourse. Takes nitrofurantoin after intercourse with good effect. Hyperlipidemia (Chronic 07/20/16). 05/2017 labwork: 10-year ASCVD risk = ~3.1% --> no statin indicated at this time. Hypomagnesemia (Chronic 11/06/15). IFG (impaired fasting glucose) (Chronic). Portal hypertension (Chronic). Vitamin D deficiency, unspecified (Chronic). Surgical History . AVM (arteriovenous malformation) brain (Acute). s/p craniotomy and surgical [place] [facility] [place]. section. x2 PREVIOUS FUNCTIONAL STATUS/SOCIAL/FAMILY SUPPORTS:: Estela lives alone in a single family home in [place], [place]. She stated that she is currently from her because of her drinking. 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 She has 2 children; a son in [place] and a daughter in [place]. Estela is independent with all care and activities and continues to drive. CURRENT FUNCTIONAL STATUS:: Estela was lying in bed in the ICU when CM met with her. She was able to share some of her history, including the fact that she has been to rehab many times and that she has failed multiple programs to help with sobriety. She states that AA just does not work for her. She states she hopes that this time she will be more successful. ADVANCE DIRECTIVES:: None on file CODE STATUS:: Full Code INSURANCE COVERAGE / FINANCIAL ISSUES:: [employer] [facility] CURRENT HOME/COMMUNITY SERVICES/EQUIPMENT:: None PRIMARY CARE PHYSICIAN:: Sharon Arias POTENTIAL DISCHARGE NEEDS:: Assistance with recdovery and sobriety PATIENT/FAMILY EDUCATION NEEDS:: Discharge plan, limitations, follow up care, Ask Me Three ANTICIPATED BARRIERS TO DISCHARGE:: none identified TRANSPORTATION:: via private vehicle with family when ready PLAN:: Estela remains ICU level of care. She will likely return home with some supportive services for substance abuse. CM will continue to provide support to patient, family and discharge planning needs.
--- NOTE | 2019-03-31 11:50 | PHARADMIT ---
Admission Pharmacy Clinical Review alcohol withdrawal Code Status Full Code Current Weight 67.2 kg Renally Cleared and Narrow Therapeutic Index Meds Crcl ~59.14 mL/min current meds okay QTc Value / Action Taken QTc 468 BP Control, Fever BP 138/84 afebrile Electrolytes reviewed Na 151 Cl 112 DVT Prophylaxis none Opiate Usage / Scheduled Bowel Regimen Ordered no/no Plt/SCr for Heparin / Enoxaparin plt 79 SCr 0.76 INR for Warfarin n/a H/H stable, WBC/Bands h/h 12.6/38.7 wbc 2.51 Antibiotic appropriateness none Cultures and Sensitivities n/a Surgical ABX d/c within 24 hr n/a DM control / Insulin Dosing BG 114 none Heart Failure (Check EF%) (VERONICA's, B-Block, Diuretics) none IV to PO Switch n/a Home Meds Reviewed yes Home Meds Not Ordered acetaminophen, milk thistle(was cancelled), nadolol, naltrexone, nitrofurantoin Comments CIWA-8 watch Na levels
[2019-03-31 14:22] LABS: Anion Gap 7.3 mmol/L (3-11); BUN 11 mg/dL (7-18); CO2 28.7 mmol/L (21.0-32.0); CREATININE 0.74 mg/dL (0.55-1.02); Chloride 105 mmol/L (98-107); Glucose 127 mg/dL (70-100); Potassium 3.6 mmol/L (3.5-5.1); Sodium 141 mmol/L (136-145)
[2019-03-31] MEDS: Normal Saline 1,000 ML 100 ML IV (22:20)
[2019-04-01] VITALS (14 sets, daily range): BP systolic 119–159; BP diastolic 67–96; PULSE 66–88; RESP 14–22; TEMP 37–37.4; O2SAT 95–98
--- NOTE | 2019-04-01 06:30 | DI.RAD_ITS ---
SYMPTOMS/DIAGNOSIS: SHORTNESS OF BREATH PORTABLE SEMI-ERECT CHEST: Comparison is made with 2 Nov, 2014. The heart is enlarged and the aorta tortuous, unchanged. Leads overlie the chest. No infiltrate, effusion or pulmonary edema is seen. IMPRESSION: No acute abnormality.
[2019-04-01 07:29] LABS: Anion Gap 8.7 mmol/L (3-11); BUN 9 mg/dL (7-18); CO2 26.3 mmol/L (21.0-32.0); CREATININE 0.65 mg/dL (0.55-1.02); Chloride 107 mmol/L (98-107); Glucose 96 mg/dL (70-100); Magnesium 1.7 mg/dL (1.8-2.4); Sodium 142 mmol/L (136-145)
--- NOTE | 2019-04-01 07:31 | DI.VRAD_ITS ---
EXAM: XR Chest, 1 View EXAM DATE/TIME: 04/01/2019 6:42 AM CLINICAL HISTORY: 58 years old, female; Shortness of breath TECHNIQUE: Imaging protocol: XR of the chest, 1 view. COMPARISON: CR CHEST 2 VIEWS PA,LAT 12/01/2014 6:37 PM FINDINGS: Lungs: Unremarkable. No consolidation. Pleural space: Unremarkable. No pleural effusion. No pneumothorax. Heart/Mediastinum: Unremarkable. No cardiomegaly. Bones/joints: Unremarkable. IMPRESSION: No acute findings. Dictated and Authenticated by: Ryder Pal MD. Ordering:ELIU Schulte MD
[2019-04-01 07:43] LABS: Absolute Basophil Count 0.02 k/cumm (0.0-0.2); Absolute Eosinophil Count 0.16 k/cumm (0.0-0.7); Absolute Neutrophil Count 1.03 k/cumm (1.2-6.7); Basophils % 0.8; Eosinophils % 6.6; HCT 38.1 % (36.0-46.0); HGB 12.4 g/dL (12.0-15.5); Lymphocytes % 37.3; Mean Corp. HGB Concentration 32.5 g/dL (32.0-36.0); Mean Corpuscular Hemoglobin 30.1 pg (27.0-33.0); Mean Corpuscular Volume 92.5 fL (80-95); Mean Platelet Volume 10.4 fL (8.0-11.0); Monocytes % 12.4; Neutrophils % 42.9; RBC 4.12 m/cumm (4.00-5.20); RBC Distribution Width 14.9 % (11.7-14.6); White Blood Cell Count 2.41 k/cumm (4.4-10.8)
[2019-04-01] MEDS: Multivitamin TAB 1 TAB PO (07:56)
[2019-04-01] MEDS: Thiamine 100 MG TAB PO (07:56)
[2019-04-01] MEDS: lamoTRIgine 25 MG TAB PO (07:57)
[2019-04-01] MEDS: Folic Acid 1 MG TAB PO (07:57)
[2019-04-01] MEDS: Cholecalciferol (Vitamin D3) 1,000 UNIT TAB 1000 UNITS PO (07:57)
[2019-04-01] MEDS: Topiramate 100 MG TAB PO ×2 (07:57→20:35)
[2019-04-01 08:01] LABS: Diff Comment Agrees w/ Instrument; Platelet Count 65 x1000/uL (130-400); RBC Morphology Normal
[2019-04-01] MEDS: POTASSIUM CHLORIDE 20 MEQ/100 ML BAG 50 MEQ IVPB (10:26)
[2019-04-01] MEDS: MAGNESIUM SULFATE 1 GM/100 ML BAG IVPB (10:26)
[2019-04-01] MEDS: Potassium Chloride 20 MEQ TABCR 40 MEQ PO ×2 (10:27→18:50)
--- NOTE | 2019-04-01 12:27 | PDOC.CMPRO ---
- If Service Date Differs Date of service: 04/01/19 Time of Service: 12:27 Care Management Progress Note S/O: CM met with Estela at length in addition CM reviewed clinical chart and at interdisciplinary rounds. Estela remains on CIWA protocol her scores are minimal overnight. She continues to receive IV fluids and cardiac monitoring. Estela is open in her discussion r/t history with substance abuse treatment she does not appreciate or believe in the 12 step program. She is not interested in going to AA meetings although she does occasionally tolerate them. She has met with several recovery coaches she states Yoselyn Gotti has been the one she was able to connect with. She has Ashley Casarez as a therapist she has recently met with for consultation as well. Estela reports the longest she has been able to sustain from alcohol is 8 months. CM reviewed the risk of harm if she continues to use alcohol including liver failure. She has [place] liver [place] [facility] however states she no longer follows up with them. Estela reports she does not want to continue to use alcohol she does not want to return to a rehab facility she states they all are based on the 12 step program which she does not feel is right for her. Estela states her spouse is at his end with her and she does not feel that she has a lot of support in the community. She does not like what happens to her when she drinks, she describes a recent episode in the ED when she transferred via junior php developer at the detainment center until her breathalyzer was negative. She denies that she was intoxicated at that time however her TOLU was 485 at that ED visit. Soila is willing to continue to meet with customer care team coach, she does state she would like to change primary care providers. CM encouraged her to stay within the practice and request appointment with different provider. CM explained that continuity of care is beneficial when there is chronic health care. CM did offer resources for other area practices and discussed wait times for each of the practices. Estela will consider where she would like a referral sent and CM will provide the application for practice. Estela will transition to the medical surgical floor today. She is hopeful she will be discharged in the next 24 hours. CM will contact recovery center and request track and field coach meet with her while she remains at [facility]. A: Estela is a 58 year old female admitted for alcohol withdrawal with a history of chronic alcoholism and, liver disease and portal hypertension and varices. P: Estela will be discharged home when medically ready per provider. She will continue follow up with her therapist, customer care team coach as prior to admission. Estela declines inpatient treatment at this time, she states she has all the resources for [facility] program. Estela will transport home with family at time of discharge.
--- NOTE | 2019-04-01 15:54 | PGE_ITS ---
Date of Service Date of service: 04/01/19 Time of Service: 15:55 Assessment and Plan (1) Alcohol withdrawal: Current visit: Yes Status: Acute No current signs of withdrawl. Patient in not tremulous, non-diaphoretic, and without hallucinations. - Transfer [facility], continue standing Oxazepam and taper slowly, continue to maintain on CIWA protocol, and maintain on daily Thiamine, MVI, and FA. Qualifiers: Complication of substance-induced condition: uncomplicated Qualified Code(s): F10.230 - Alcohol dependence with withdrawal, uncomplicated (2) Seizure disorder: Current visit: No Status: Chronic Continue Topiramate, Lamictal. (3) Cirrhosis: Current visit: Yes Status: Acute Evidence of Cirrhosis by ultrasound 07/2018. Also with mention of abdominal varices, evidence of portal hypertension, and esophageal varices in the past. - Need to ensure GI Follow-up. Wound benefit from non-selective BB therapy - will initiate low dose Nadolol and monitor HR and BP. - Given significant EtOH abuse would benefit from PPI therapy for GI protection as well. - Evidence of TCP and cirrhosis by ultrasound, but INR is normal. Synthetic function appears intact. - Counseled on cessation of alcohol use. Will ensure GI follow-up on discharge. (4) DVT prophylaxis: Current visit: Yes Status: Acute SCDs, TEDs. Avoid chemical prophylaxis given Thrombocytopenia. (5) Advance directive on file: Current visit: Yes Status: Acute Full Code. Subjective Interval history since last seen: 58 year old woman with a prior history EtOH abuse, admitted from [facility] Emergency Department on 03/30 with a diagnosis of acute Alcohol Withdrawl. Mrs. Martinez has a Past Medical History significant for EtOH abuse, Seizure Disorder (either related to prior Intracranial AVMs, PRES Syndrome, or Alcohol Withdrawl), HTN, Cirrhosis with evidence of prior Esophageal Varices, Depression and anxiety. She reportedly drinks a fifth of vodka daily. She was brought in by friends who found her to be tremulous and diaphoretic, complaining of diarrhea, nausea, and generalized malaise. Work-up showed evidence of an elevated BAL of 243, Elevated anion gap, and transaminitis with AST/ALT ratio of approximately 2:1. Her CXR showed no evidence of pathology. The patient was noted to score on the CIWA protocol, and initially required administration of IV Benzodiazepines. She was referred for admission to the ICU for further evaluation and treatment. This morning the patient reports no tremors, hallucinations, or complaints. She has not scored on the CIWA protocol. No overnight events reported. Remains afebrile. Exam Narrative Exam Narrative: General: Patient appears comfortable, AAOX3, NAD Neck: Supple CV: Regular, nontachycardic, S1S2, No rubs, murmurs, or gallops. Pulmonary: Clear to auscultation bilaterally, no crackles, wheezing, or rhonchi Abdomen: + Bowel Sounds, soft, nontender, nondistended Vascular: No lower extremity edema. Psych: Normal mood and affect. Objective Objective Clinical Data: Abnormal lab results 04/01/19 04/01/19 Range/Units 06:15 06:15 WBC 2.41 L (4.4-10.8) k/cumm RDW 14.9 H (11.7-14.6) % Plt Count 65 L (130-400) x1000/uL Absolute Neutrophils 1.03 L (1.2-6.7) k/cumm Absolute Lymphocytes 0.90 L (1.2-3.4) k/cumm Potassium 3.0 L (3.5-5.1) mmol/L Calcium 8.0 L (8.5-10.1) mg/dL Magnesium 1.7 L (1.8-2.4) mg/dL Vital Signs Temperature 37.0 C 04/01/19 08:18 Temperature Source Temporal Artery Scan 04/01/19 08:18 Pulse 77 04/01/19 12:00 Pulse 75 04/01/19 12:00 Respiratory Rate 22 04/01/19 12:00 Respiratory Effort Non-Labored 04/01/19 08:18 Respiratory Depth Normal 04/01/19 08:18 Respiratory Pattern Normal 04/01/19 08:18 Blood Pressure 159/92 H 04/01/19 12:00 Blood Pressure Mean 109 04/01/19 12:00 Blood Pressure Position Sitting 04/01/19 08:18 Pulse Oximetry 95 04/01/19 03:20 Oxygen Delivery Method Room Air 04/01/19 08:18 Oxygen Flow Rate 0 04/01/19 08:18 Pain Level 0 04/01/19 08:18 Comment 03/30/19 23:45 Intake & Output 0804/01/19 04/01/19 23:59 11:59 23:59 Intake Total 1581.25 / 4219.45 480 / 480 Output Total 1850 / 2350 480 / 480 Balance -268.75 / 1869.45 0 / 0 Weight 68.7 kg Intake: IV 801.25 / 3189.45 Oral 780 / 1030 480 / 480 Output: Urine 1850 / 2350 480 / 480 Other: Urine Color Yellow Straw Urine Appearance Clear Clear Urine Odor None Strong Comment voiding large amount of clear yellow urine Voiding Methods Bedside Commode Bedside Commode Laboratory Results WBC 2.41 k/cumm (4.4-10.8) L 04/01/19 06:15 RBC 4.12 m/cumm (4.00-5.20) 04/01/19 06:15 Hgb 12.4 g/dL (12.0-15.5) 04/01/19 06:15 Hct 38.1 % (36.0-46.0) 04/01/19 06:15 MCV 92.5 fL (80-95) 04/01/19 06:15 MCH 30.1 pg (27.0-33.0) 04/01/19 06:15 MCHC 32.5 g/dL (32.0-36.0) 04/01/19 06:15 RDW 14.9 % (11.7-14.6) H 04/01/19 06:15 Plt Count 65 x1000/uL (130-400) L 04/01/19 06:15 MPV 10.4 fL (8.0-11.0) 04/01/19 06:15 Immature Gran % 0.0 04/01/19 06:15 42.9 04/01/19 06:15 37.3 04/01/19 06:15 12.4 04/01/19 06:15 6.6 04/01/19 06:15 0.8 04/01/19 06:15 Absolute Neutrophils 1.03 k/cumm (1.2-6.7) L 04/01/19 06:15 Absolute Lymphocytes 0.90 k/cumm (1.2-3.4) L 04/01/19 06:15 Absolute Monocytes 0.30 k/cumm (0.11-0.7) 04/01/19 06:15 Absolute Eosinophils 0.16 k/cumm (0.0-0.7) 04/01/19 06:15 Absolute Basophils 0.02 k/cumm (0.0-0.2) 04/01/19 06:15 Agrees w/ instrument 04/01/19 06:15 RBC Morphology Normal 04/01/19 06:15 PT 10.1 sec (9.3-11.0) 03/30/19 20:30 INR 1.0 (0.9-1.1) 03/30/19 20:30 APTT 22.6 sec (21.0-31.4) 03/30/19 20:30 Sodium 142 mmol/L (136-145) 04/01/19 06:15 Potassium 3.0 mmol/L (3.5-5.1) L 04/01/19 06:15 Chloride 107 mmol/L (98-107) 04/01/19 06:15 Carbon Dioxide 26.3 mmol/L (21.0-32.0) 04/01/19 06:15 8.7 mmol/L (3-11) 04/01/19 06:15 BUN 9 mg/dL (7-18) 04/01/19 06:15 0.65 mg/dL (0.55-1.02) 04/01/19 06:15 >= 60.00 (mL/min/1.73m2) 04/01/19 06:15 Glucose 96 mg/dL (70-100) 04/01/19 06:15 Calcium 8.0 mg/dL (8.5-10.1) L 04/01/19 06:15 Phosphorus 2.7 mg/dL (2.6-4.7) 03/31/19 06:30 Magnesium 1.7 mg/dL (1.8-2.4) L 04/01/19 06:15 0.6 mg/dL (0.2-1.0) 03/31/19 06:30 0.17 mg/dL (0.00-0.20) 03/31/19 06:30 AST 74 U/L (15-37) H 03/31/19 06:30 ALT 47 U/L (14-59) 03/31/19 06:30 96 U/L (46-116) 03/31/19 06:30 < 0.05 ng/mL (0.00-0.06) 03/30/19 20:30 6.0 g/dL (6.4-8.2) L 03/31/19 06:30 2.7 g/dL (3.4-5.0) L 03/31/19 06:30 374 U/L (73-393) 03/30/19 20:30 Ethyl Alcohol 243.3 mg/dL (<3) 03/30/19 20:30
[2019-04-01] MEDS: Nadolol 40 MG TAB PO (18:16)
[2019-04-01] MEDS: Normal Saline Flush 10 ML SYR IVP (20:36)
--- NOTE | 2019-04-01 21:31 | NUR.NOTE ---
Nursing Note: 2109H Transferred from ICU to Med/surg Rm 225. Ambulatory with steady gait. VSS. Alert and oriented. Oriented to surroundings and call luz. Adjusted room temperature and given extra blankets. Made comfortable.
[2019-04-02 07:34] LABS: Absolute Basophil Count 0.02 k/cumm (0.0-0.2); Absolute Eosinophil Count 0.28 k/cumm (0.0-0.7); Absolute Lymphocyte Count 1.05 k/cumm (1.2-3.4); Absolute Monocyte Count 0.49 k/cumm (0.11-0.7); Absolute Neutrophil Count 2.75 k/cumm (1.2-6.7); Basophils % 0.4; Eosinophils % 6.1; HCT 40.5 % (36.0-46.0); HGB 13.3 g/dL (12.0-15.5); Lymphocytes % 22.9; Mean Corp. HGB Concentration 32.8 g/dL (32.0-36.0); Mean Corpuscular Hemoglobin 30.3 pg (27.0-33.0); Mean Corpuscular Volume 92.3 fL (80-95); Mean Platelet Volume 10.6 fL (8.0-11.0); Monocytes % 10.7; Neutrophils % 59.9; RBC 4.39 m/cumm (4.00-5.20); RBC Distribution Width 14.7 % (11.7-14.6); White Blood Cell Count 4.59 k/cumm (4.4-10.8)
[2019-04-02 07:38] LABS: Anion Gap 9.5 mmol/L (3-11); BUN 11 mg/dL (7-18); CO2 21.5 mmol/L (21.0-32.0); CREATININE 0.74 mg/dL (0.55-1.02); Calcium 8.6 mg/dL (8.5-10.1); Chloride 110 mmol/L (98-107); Glucose 106 mg/dL (70-100); Magnesium 1.7 mg/dL (1.8-2.4); Potassium 3.9 mmol/L (3.5-5.1); Sodium 141 mmol/L (136-145)
[2019-04-02 07:52] LABS: Platelet Count 79 x1000/uL (130-400)
[2019-04-02 07:53] LABS: Basophilic Stippling Present; Diff Comment PLT Morph Reviewed; Polychromasia Present
[2019-04-02 08:36] VITALS: BP 120/85; PULSE 60; RESP 17; TEMP 36.8; O2SAT 97
[2019-04-02] MEDS: Normal Saline Flush 10 ML SYR IVP (08:44)
[2019-04-02] MEDS: lamoTRIgine 25 MG TAB PO (08:44)
[2019-04-02] MEDS: Cholecalciferol (Vitamin D3) 1,000 UNIT TAB 1000 UNITS PO (08:44)
[2019-04-02] MEDS: Pantoprazole 40 MG VIAL IVP (08:44)
[2019-04-02] MEDS: Multivitamin TAB 1 TAB PO (08:45)
[2019-04-02] MEDS: Thiamine 100 MG TAB PO (08:45)
[2019-04-02] MEDS: Nadolol 40 MG TAB PO (08:45)
[2019-04-02] MEDS: Topiramate 100 MG TAB PO (08:45)
[2019-04-02] MEDS: Folic Acid 1 MG TAB PO (08:45)
[2019-04-02] MEDS: Potassium Chloride 10 MEQ TABCR PO (11:01)
[2019-04-02] MEDS: Magnesium Oxide 400 MG TAB 800 MG PO (11:01)
--- NOTE | 2019-04-02 11:16 | DSE_ITS ---
Date of service: 04/02/19 Time of Service: 11:16 DS: Diagnosis Discharge Diagnosis (1) Alcohol withdrawal: Status: Acute (2) Seizure disorder: Status: Chronic (3) Cirrhosis: Status: Acute Discharge Plan Disposition Patient Disposition: HOME Condition: Stable Discharge Details Chief Complaint: ETOHWithdr Clinical Impression: Alcohol withdrawal Reason For Visit: ALCOHOL WITHDRAWEL Admit Date/Time: 04/01/19 11:47 Admit Provider: Jose J Puckett Attending Provider: Jose J Puckett Primary Care Provider: Sharon Arias ED Provider: Jona Miramontes [facility] Course Hospital Course: Chief Complaint: Acute EtOH Withdrawl HPI: 58 year old woman with a prior history EtOH abuse, admitted from [facility] Emergency Department on 03/30 with a diagnosis of Acute Alcohol Withdrawl. Mrs. Martinez has a Past Medical History significant for EtOH abuse, Seizure Disorder (either related to prior Intracranial AVMs, PRES Syndrome, or Alcohol Withdrawl), HTN, Cirrhosis with evidence of Esophageal Varices, Depression and anxiety. She reportedly drinks a fifth of vodka daily. She was brought in by friends who found her to be tremulous and diaphoretic, complaining of diarrhea, nausea, and generalized malaise. Work-up showed evidence of an elevated BAL of 243, Elevated anion gap, and transaminitis with AST/ALT ratio of approximately 2:1. Her CXR showed no evidence of pathology. The patient was noted to score on the CIWA protocol, and initially required administration of IV Benzodiazepines. She was referred for admission to the ICU for further evaluation and treatment. This morning the patient again reports no tremors, hallucinations, or complaints. She has either not scored or scored very low on the CIWA protocol over the past 48 hours. No overnight events reported. Remains afebrile. Hospital Course: (1) Alcohol withdrawal: No current signs of withdrawl, and none over the last 48 hours. Patient in not tremulous, non-diaphoretic, without hallucinations, and with stable vital signs - Plan to slowly taper standing Oxazepam, and continue daily Thiamine, MVI, and FA. Discussed cessation in detail - patient is motivated, and is already connected with a recovery operator as an outpatient. (2) Seizure disorder: Continue Topiramate, Lamictal. (3) Cirrhosis: Evidence of Cirrhosis by ultrasound 07/2018. Also with mention of abdominal varices, evidence of portal hypertension, and esophageal varices in the past. - Patient reports routine GI Follow-up. Wound benefit from use of non-selective BB therapy - tolerating low dose Nadolol well. - Given significant EtOH abuse would benefit from PPI therapy for GI protection as well. - Evidence of TCP and cirrhosis by ultrasound, but INR is normal. Synthetic function appears intact. - Counseled on cessation of alcohol use. Patient understands and appears motivated. (4) DVT prophylaxis: Given thrombocytopenia patient was maintained on SCDs, TEDs. (5) Advance directive on file: Full Code. Home Meds and New Rx's Prescriptions: New multivitamin [Multiple Vitamins] Tablet 1 tab PO DAILY Qty: 1 RF: 0 nadolol [Corgard] 40 mg Tablet 40 mg PO DAILY Qty: 30 RF: 0 oxazepam 15 mg capsule 15 mg PO QHS Qty: 18 RF: 0 pantoprazole [Protonix] 40 mg tablet,delayed release (DR/EC) 40 mg PO DAILY Qty: 30 RF: 0 Continued lamotrigine [Lamictal] 25 mg tablet 25 mg PO DAILY Qty: 90 RF: 0 acetaminophen 500 mg tablet 500 - 1,000 mg PO BID MDD 2000 mg PRN (Reason: pain) Qty: 90 RF: 0 topiramate 100 mg tablet 100 mg PO BID Qty: 180 RF: 3 cholecalciferol (vitamin D3) 1,000 UNIT tablet 1,000 unit PO DAILY RF: 0 milk thistle seed extract 200 MG capsule 480 mg PO DAILY RF: 0 thiamine HCl (vitamin B1) 100 mg tablet 100 mg PO DAILY Qty: 30 RF: 0 folic acid 1 MG tablet 1 mg PO DAILY RF: 0 Discontinued nitrofurantoin macrocrystal [Macrodantin] 100 mg capsule 100 mg PO ONCE Qty: 30 RF: 3 Discharge Instructions Additional Instructions: Please see your Primary Care Provider in 1-2 weeks Activity:: No Strenuous Activity Equipment/Supplies:: No Equipment Needed Diet:: As Tolerated Discharge Orders Discharge Orders: Discharge Order (Routine); Ordered 04/02/19 Ordered By: Jose J Puckett DS: Data Vitals/I&O Vitals and I&O: Vital Signs Temperature 36.8 C 04/02/19 08:36 Temperature Source Tympanic 04/02/19 08:36 Pulse 60 04/02/19 08:36 Pulse 88 08/31/19 19:42 Respiratory Rate 17 04/02/19 08:36 Respiratory Effort Non-Labored 04/01/19 19:27 Respiratory Depth Normal 04/01/19 19:27 Respiratory Pattern Normal 04/01/19 19:27 Blood Pressure 120/85 04/02/19 08:36 Blood Pressure Mean 99 04/01/19 19:42 Blood Pressure Position Sitting 04/01/19 19:27 Pulse Oximetry 97 04/02/19 08:36 Oxygen Delivery Method Room Air 04/02/19 08:36 Oxygen Flow Rate 0 04/02/19 08:36 Pain Level 0 04/02/19 08:36 Comment 03/30/19 23:45 Intake & Output 04/01/19 04/01/19 04/02/19 11:59 23:59 11:59 Intake Total 480 / 1260 780 / 1260 100 / 100 Output Total 480 / 1255 775 / 1255 Balance 0 / 5 5 / 5 100 / 100 Weight 68.7 kg Intake: IV 100 / 100 100 / 100 Oral 480 / 1160 680 / 1160 Output: Urine 480 / 1255 775 / 1255 Other: Urine Color Straw Straw Urine Appearance Clear Clear Urine Odor Strong Normal Comment Patient indepdnently uses bathroom Voiding Methods Bedside Commode Bedside Commode Completed studies during hospitalization [Text1]: EXAM: XR Chest, 1 View EXAM DATE/TIME: 04/01/2019 6:42 AM CLINICAL HISTORY: 58 years old, female; Shortness of breath TECHNIQUE: Imaging protocol: XR of the chest, 1 view. COMPARISON: CR CHEST 2 VIEWS PA,LAT 12/01/2014 6:37 PM FINDINGS: Lungs: Unremarkable. No consolidation. Pleural space: Unremarkable. No pleural effusion. No pneumothorax. Heart/Mediastinum: Unremarkable. No cardiomegaly. Bones/joints: Unremarkable. IMPRESSION: No acute findings. Labs on day of discharge: Labs from last 24 hours 04/02/19 04/02/19 07:18 07:18 WBC 4.59 D RBC 4.39 Hgb 13.3 Hct 40.5 MCV 92.3 MCH 30.3 MCHC 32.8 RDW 14.7 H Plt Count 79 L MPV 10.6 Immature Gran % 0.0 Neutrophils % 59.9 Lymphocytes % 22.9 Monocytes % 10.7 Eosinophils % 6.1 Basophils % 0.4 Absolute Neutrophils 2.75 Absolute Lymphocytes 1.05 L Absolute Monocytes 0.49 Absolute Eosinophils 0.28 Absolute Basophils 0.02 Differential Comment Plt morph reviewed RBC Morphology See below Polychromasia Present Basophilic Stippling Present Sodium 141 Potassium 3.9 D Chloride 110 H Carbon Dioxide 21.5 Anion Gap 9.5 BUN 11 Creatinine 0.74 Estimated GFR/1.73 m2 >= 60.00 Glucose 106 H Calcium 8.6 Magnesium 1.7 L PFSH Medical History Alcohol use disorder (Chronic) Pt does not like AA, prefers [employer]; patient alleges that she has an AA sponsor but has not been going to meetings Alcohol withdrawal seizure (Acute) Alcoholic cirrhosis of liver without ascites (Chronic 06/17/16) With portal HTN and esophageal varices 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 Pradhan) Bradycardia (Chronic 06/11/17) Negative exercise stress test 06/11/2017 (carried out due to change in EKG) Esophageal varices without bleeding (Chronic 07/01/04) grade I per EGD 01/2005 Essential hypertension (Chronic 05/15/15) Frequent UTI (Chronic) Associated with intercourse. Takes nitrofurantoin after intercourse with good effect. Hyperlipidemia (Chronic 07/20/16) 05/2017 labwork: 10-year ASCVD risk = ~3.1% --> no statin indicated at this time Hypomagnesemia (Chronic 11/06/15) IFG (impaired fasting glucose) (Chronic) Portal hypertension (Chronic) Vitamin D deficiency, unspecified (Chronic) Surgical History AVM (arteriovenous malformation) brain (Acute) s/p craniotomy and surgical resection; [facility] approx. 2008 section x2 Family History Brother Mental disorder Bipolar disorder Social History Smoking/Tobacco Use Status: Never Alcohol Intake: current Alcohol Intake frequency: 3 or more drinks per day Alcohol type: hard liquor Drug use: Never Substance use type: does not use Adopted: No Caregiver/Support person: No Foster care: No Household members: spouse Number of Children: 2 Communication Needs: None current occupation: In home care Pets and animals: Yes Pets and animals: dog(s) Sexually active: Yes Current gender identity: female What type of physical activity do you participate in: walking Duration: 45-60 minutes/day Frequency: 3-4 times per week Seatbelt use: always Drive intox or ride w/intox non cdl driver: No Water heater temp set <120 deg: Yes Working smoke detector in home: Yes Fire extinguisher in home: Yes Carbon monox detector in home: Yes Firearms in home: No Do you feel safe at home: Yes Do you feel safe in your relationship?: Yes
--- NOTE | 2019-04-02 13:08 | CMDISCH_ITS ---
- If Service Date Differs Date of service: 04/02/19 Time of Service: 13:08 LACE Index Scoring Tool - Questions: Length of Stay (in days): 4 - 6 Acuity (Admit via E.D.?): Yes Comorbidities: Liver or Renal Disease E.D. Visits: 7 - Answers: Total Score: 16 Risk of Readmission: High Risk Care Management Discharge Reason for Hospitalization: Alcohol withdrawal Discharge Plan: Estela is being discharged home today, she has the contact information for personal development coach she has met with 2 while inpatient. She will reach out to Julius who she feels she has the best connection with. She will taper down her Serax, she states she is ready to sustain from alcohol, she is not interested in the AA resources and knows how to access information if needed. No other anticipated services, she will need to follow-up with her primary care physician after discharge. Provider recommends GI follow-up in addition related to liver disease. Patient/Family Education Needs: Discharge education, limitations, follow-up plan of care, and asked me 3.
== END 2019-04-02 12:58 | disposition home or self-care (01) | DRG 896 ==
LOC: ER 22:45 → ICU 03-31 10:01 → MS 04-02 11:25 → ICU 04-04 14:04
PROVIDERS: Internal Medicine; Admitting Provider Internal Medicine; Emergency Provider Emergency Medicine; PCP Nurse Practitioner Family; Visit Provider Internal Medicine
DX: F10.230 Alcohol dependence with withdrawal, uncomplicated (principal); I67.83 Posterior reversible encephalopathy syndrome; I85.10 Secondary esophageal varices without bleeding; K76.6 Portal hypertension; E83.42 Hypomagnesemia; R06.02 Shortness of breath; G40.909 Epilepsy, unspecified, not intractable, without status epilepticus; I10 Essential (primary) hypertension; K74.60 Unspecified cirrhosis of liver; F41.8 Other specified anxiety disorders; F10.220 Alcohol dependence with intoxication, uncomplicated; Y90.8 Blood alcohol level of 240 mg/100 ml or more
CPT/HCPCS: 36415; 80048; 80053; 80076; 83690; 85027; 93005; 96365; 96366; 99223; 99232; 99233; 99239; 99285; 71045; 80320; 83735; 84100; 84484; 85025; 85610; 85730; 93010; 99284; J2060; J3475; J3480; J7060

== ENCOUNTER 2020-02-22 01:40 | Outpatient (CLI) | payer OTHER, SELFPAY ==
[2020-02-22 14:11] LABS: ALT 15 U/L (14-59); AST 16 U/L (15-37); Albumin 3.3 g/dL (3.4-5.0); Alkaline Phosphatase 65 U/L (46-116); Anion Gap 8.6 mmol/L (3-11); BUN 15 mg/dL (7-18); Bilirubin, Total 0.4 mg/dL (0.2-1.0); CO2 27.4 mmol/L (21.0-32.0); CREATININE 0.85 mg/dL (0.55-1.02); Calcium 8.8 mg/dL (8.5-10.1); Chloride 109 mmol/L (98-107); Glucose 78 mg/dL (74-106); Potassium 3.7 mmol/L (3.5-5.1); Sodium 145 mmol/L (136-145); Total Protein 6.6 g/dL (6.4-8.2)
== END 2020-02-22 02:00 ==
DX: K74.60 Unspecified cirrhosis of liver (principal)
CPT/HCPCS: 36415; 80053

== ENCOUNTER 2021-02-12 03:35 | Outpatient (CLI) | payer OTHER, SELFPAY ==
[2021-02-12 10:16] LABS: Abs Immature Grans 0.01 10^3/uL (0.0-0.06); Absolute Basophil Count 0.06 10^3/uL (0.0-0.2); Absolute Eosinophil Count 0.15 10^3/uL (0.0-0.7); Absolute Lymphocyte Count 1.57 10^3/uL (1.2-3.4); Absolute Monocyte Count 0.35 10^3/uL (0.1-0.8); Absolute Neutrophil Count 3.16 10^3/uL (1.2-6.7); Basophils % 1.1; Eosinophils % 2.8; HCT 42.5 % (36.0-46.0); HGB 13.7 g/dL (11.2-15.7); Immature Grans % 0.2; Lymphocytes % 29.6; MCHC 32.2 % (32.0-36.0); MCV 89.9 fL (80-95); MPV 10.2 fL (8.0-11.0); Monocytes % 6.6; Neutrophils % 59.7; Nucleated RBC 0 %; Platelet Count 132 10^3/uL (130-400); RBC 4.73 10^6/uL (3.93-5.22); RDW 13.8 % (11.7-14.6); RDW-SD 45.5 fL
[2021-02-12 10:47] LABS: ALT 14 U/L (14-59); AST 12 U/L (15-37); Albumin 3.4 g/dL (3.4-5.0); Alkaline Phosphatase 63 U/L (46-116); Anion Gap 11.3 mmol/L (3-11); BUN 20 mg/dL (7-18); Bilirubin, Total 0.3 mg/dL (0.2-1.0); CO2 23.7 mmol/L (21.0-32.0); CREATININE 0.9 mg/dL (0.55-1.02); Calcium 9.2 mg/dL (8.5-10.1); Chloride 110 mmol/L (98-107); Glucose 99 mg/dL (74-106); Sodium 145 mmol/L (136-145); Total Protein 6.7 g/dL (6.4-8.2)
[2021-02-12 20:13] LABS: Calculated LDL 130 mg/dL (<100); Cholesterol 198 mg/dL (<200); HDL Cholesterol 52 mg/dL (40-60); Triglyceride 82 mg/dL (<150)
[2021-02-14 12:56] LABS: Lamotrigine <0.2 mcg/mL (2.5 - 15.0)
== END 2021-02-12 03:36 | disposition home or self-care (01) ==
LOC: LBO 03:35
PROVIDERS: Visit Provider Nurse Practitioner
DX: Z00.00 Encounter for general adult medical examination without abnormal findings (principal); G40.909 Epilepsy, unspecified, not intractable, without status epilepticus; Z51.81 Encounter for therapeutic drug level monitoring; Z13.6 Encounter for screening for cardiovascular disorders
CPT/HCPCS: 36415; 80053; 80061; 80175; 85025

== ENCOUNTER 2021-03-24 01:42 | Outpatient (CLI) | payer OTHER, SELFPAY ==
--- NOTE | 2021-03-24 | DI.MAMMO_ITS ---
Exam(s) MAMMO SCREENING EXAM: MAMMO SCREENING CLINICAL HISTORY: SCREENING, Z12.39. TECHNIQUE: Bilateral full field digital CC and MLO mammographic images were obtained with 3D tomosyn thesis and utilizing computer aided detection (CAD). COMPARISON: Prior mammograms dating back to 2012, the most recent being June 2018. FINDINGS: Fibroglandular tissue pattern is again noted be moderately dense, this decreasing the sensitivity of the mammogram for finding hidden underlying lesions. There are no new obvious spiculated masses nor malignant-appearing microcalcification groups. There is no significant architectural distortion nor skin thickening-retraction. IMPRESSION: Dense bilateral fibroglandular tissue. No obvious radiographic evidence of malignancy nor significan t change compared to prior examinations listed above. BI-RADS Category 1 - Negative Breast Density - Category C - Heterogeneously dense Breast density Category C or D implies that the patient has dense breast tissue. Dense breast tissue can make it harder to find cancer on a mammogram. Dense breast tissue is also associated with an incr eased risk of breast cancer. This information about the result of the mammogram report was provided to the patient to raise their awareness. Use this report when you speak with the patient about their risks for breast cancer, which includes their family history. At that time, you may recommend additional screening tests (Ultrasoun d or MRI) as these tests may add significant information. A negative radiographic report should not delay biopsy if a dominant or clinically suspicious mass is present. Up to ten percent of cancers are not identified on mammography. A negative report may reinforce clinical impression. Adenosis and dense breasts may obscure an underlying neoplasm. False positive reports average 6 to 10%. Patient will receive a letter notifying them of these results.
== END 2021-03-24 02:02 ==
PROVIDERS: PCP Nurse Practitioner; Visit Provider Nurse Practitioner
DX: Z12.31 Encounter for screening mammogram for malignant neoplasm of breast (principal); R92.2 Inconclusive mammogram
CPT/HCPCS: 77063; 77067

== ENCOUNTER 2021-06-25 13:54 | Outpatient (CLI) | payer OTHER, SELFPAY ==
--- NOTE | 2021-06-25 13:15 | DI.RAD_ITS ---
Exam(s) XR SHOULDER LT COMPLETE 2+V EXAM: XR SHOULDER LT COMPLETE 2+V CLINICAL HISTORY: left shoulder pain TECHNIQUE: COMPARISON: No exams were available for comparison FINDINGS: Three views were obtained. There are mild hypertrophic degenerative changes of the acromioclavicular joint. There is minimal acromial spurring. There is minimal calcification in the soft tissues in t he region of the supraspinatus tendon. Minimal marginal osteophyte formation noted involving the hum eral head and glenoid. The cartilaginous joint space of the glenohumeral joint appears well maintain ed. IMPRESSION: Mild DJD of acromioclavicular and glenohumeral joints. RADIATION DOSE DELIVERED: Total DLP
== END 2021-06-25 13:55 | disposition home or self-care (01) ==
LOC: DIORS 13:55
PROVIDERS: PCP Nurse Practitioner; Visit Provider Student in an Organized Health Care Education/Training Program
DX: M25.512 Pain in left shoulder (principal)
CPT/HCPCS: 73030

== ENCOUNTER → 2021-07-09 01:13 | Outpatient (CLI) | payer OTHER, SELFPAY ==
--- NOTE | 2021-07-09 07:15 | DI.MRI_ITS ---
Exam(s) MR UPPER JOINT LT WO EXAM: MR UPPER JOINT LT WO CLINICAL HISTORY: L SHOULDER PAIN,adhesive capsulitis,traumatic tear lt rotator cuff,s46.012a. TECHNIQUE: Multiplanar multisequence MRI was performed. COMPARISON: CR XR SHOULDER LT COMPLETE 2+V from 06/25/2021 CR XR SHOULDER LT COMPLETE 2+V from 06/25/2021 FINDINGS: BONES: There is no fracture or contusion pattern. JOINTS: The acromioclavicular joint is normal. The glenohumeral joint is normal. TENDONS: Supraspinatus: There is a full-thickness tear of the supraspinatus tendon anteriorly near its inserti on site onto the greater tuberosity.. There is a gap of 7 mm. Infraspinatus: There is hyperintense signal seen on the articular surface of the infraspinatus tendon consistent with a partial tear. (Image 14). Subscapularis: There is thickening in intermediate signal to high signal in the subscapularis tendon consistent with a tendinosis or partial tear. Teres Minor: Unremarkable. Biceps and [place]: There does appear to be some thickening and increased signal in the biceps tendon suspicious for tendinosis. MUSCLES: Unremarkable. GLENOID LABRUM: Unremarkable on this noncontrast examination. SOFT TISSUES: Unremarkable. LIGAMENTS: Unremarkable. OTHER: There is a small amount of fluid in the subacromial subdeltoid bursa consistent with the patie nt's supraspinatus tendon tear. IMPRESSION: 1. Full-thickness tear of the supraspinatus tendon anteriorly near its insertion site with a small am ount of fluid in the subacromial subdeltoid bursa. 2. Tendinosis and/or partial tears involving the subscapularis and biceps anchor. 3. Partial articular surface tear of the infraspinatus tendon. DATA REPOSITORY:
== END ==
PROVIDERS: PCP Nurse Practitioner; Visit Provider Student in an Organized Health Care Education/Training Program
DX: M75.02 Adhesive capsulitis of left shoulder (principal); S46.012A Strain of muscle(s) and tendon(s) of the rotator cuff of left shoulder, initial encounter; X58.XXXA Exposure to other specified factors, initial encounter
CPT/HCPCS: 73221

== ENCOUNTER 2021-08-06 03:32 | Outpatient (CLI) | payer OTHER, SELFPAY ==
[2021-08-06 16:19] LABS: Source Nasal/Nares
[2021-08-06 18:42] LABS: COVID-19 PCR Negative (Negative)
== END 2021-08-06 03:33 | disposition home or self-care (01) ==
LOC: LBO 03:33
PROVIDERS: PCP Nurse Practitioner; Visit Provider Student in an Organized Health Care Education/Training Program
DX: Z20.822 Contact with and (suspected) exposure to COVID-19 (principal); Z01.818 Encounter for other preprocedural examination
CPT/HCPCS: 87635

== ENCOUNTER 2021-08-08 07:32 | Day surgery (SDC) | payer OTHER, SELFPAY ==
[2021-08-08] VITALS (10 sets, daily range): BP systolic 101–136; BP diastolic 54–74; PULSE 61–66; RESP 14–23; TEMP 36–37; O2SAT 94–100; BMI 29.4
[2021-08-08] MEDS: Lactated Ringers 1,000 ML 100 ML IV (08:28)
--- NOTE | 2021-08-08 08:43 | W.ANESPRE ---
General Info Date of Service Date Performed: 08/08/21 Height: 5 ft 2 in Weight: 73 kg Body Mass Index (BMI): 29.4 Surgical Procedure: Operation Date: 08/08/21 10:10 Proposed Procedures Side Surgeon p Shoulder Rotator Cuff Arthroscopic,Extensive Debridement,Bicep Tenodesis,Subacromial Decompression,Manipulation Under Anesthesia Left Vik Dent MD Meds Allergies and Home Medications Allergies Allergy/AdvReac Type Severity Reaction Status Date / Time oxcarbazepine Allergy Severe Skin Rash Verified 08/08/21 08:05 [From Trileptal] meperidine HCl [From Demerol] AdvReac weird Verified 08/08/21 08:05 dreams Home Medication Medication Instructions Recorded cholecalciferol (vitamin D3) 1,000 unit PO DAILY 05/14/16 milk thistle seed extract 480 mg PO DAILY 05/14/16 folic acid 1 mg PO DAILY tab 04/30/17 acetaminophen 500 mg tablet 500 - 1,000 mg PO BID PRN #90 02/20/19 tab-cap MDD 2000 mg nitrofurantoin macrocrystal 100 mg 100 mg PO ONCE #30 tab-cap 05/09/19 capsule atenolol 25 mg tablet 12.5 mg PO DAILY #15 tab 05/14/20 topiramate 100 mg tablet 100 mg PO BID #180 tab-cap 10/28/20 aspirin 81 mg PO DAILY 14 Days #14 tab 08/08/21 naproxen 250 - 500 mg PO BID PRN #40 tab 08/08/21 oxycodone 5 - 10 mg PO Q4H PRN #18 tab MDD 08/08/21 30 mg Current Visit Medications: Current Medications Generic Name Dose Route Start Last Admin Trade Name Freq PRN Reason Stop Dose Admin Ringer's Solution 1,000 mls @ 100 mls/hr 08/08/21 06:00 08/08/21 08:28 IV 09/06/21 23:59 100 mls/hr INFUSION MARAL Administration Cefazolin Sodium/Dextrose 2 gm in 50 mls @ 100 mls/hr 08/08/21 06:00 Ancef Duplex IVPB 08/08/21 16:00 PREOP MARAL IV Miscellaneous Supplies 1 each 08/08/21 06:00 Iv Access IV 09/06/21 23:59 DIRECTED MARAL Sodium Chloride 0 ml 08/08/21 06:00 Normal Saline Flush 10 Ml Syr IV 09/06/21 23:59 PRN PRN Sodium Chloride 0 ml 08/08/21 06:00 Normal Saline 10 Ml Vial IJ 09/06/21 23:59 DIRECTED PRN Sterile Water 0 ml 08/08/21 06:00 Water,Injection,Sterile 10 Ml Vial IJ 09/06/21 23:59 DIRECTED PRN PFSH Active Problems Active Problems: Problem Status Onset Code Bursitis of left shoulder M75.52 Tendinitis of long head of biceps brachii of left shoulder M75.22 Adhesive capsulitis of left shoulder M75.02 Traumatic tear of left rotator cuff S46.012A Dizziness R42 Cirrhosis K74.60 Advance directive on file Z78.9 Discharge planning issues Z02.9 DVT prophylaxis Z29.9 Shortness of breath R06.02 Alcohol withdrawal F10.239 IFG (impaired fasting glucose) R73.01 Alcoholic cirrhosis of liver without ascites 06/17/16 K70.30 Alcohol use disorder Anxiety and depression F41.9, F32.9 Vitamin D deficiency, unspecified E55.9 Seizure disorder 05/15/15 G40.909 Portal hypertension K76.6 Hypomagnesemia 11/06/15 E83.42 Hyperlipidemia 07/20/16 E78.5 Frequent UTI N39.0 Essential hypertension 05/15/15 I10 Esophageal varices without bleeding 07/01/04 I85.00 Bradycardia 06/11/17 R00.1 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 states the less the anesthesia the better, states she doesn't do well with drugs. The less she is given the better of she is. Surgical History Surgical History AVM (arteriovenous malformation) brain incidental finding; s/p craniotomy and surgical resection R cerebellum; [facility] [place] approx. 2010 section x2 Tobacco Smoking/Tobacco Use Status: Never Alcohol Alcohol Intake: former Substance Use Substance use: Never Substance use type: does not use Vital Signs and Lab Results Vital Signs Most Recent Vital Signs in EMR: Most Recent Vital Signs Temp Pulse Resp BP Pulse Ox 37 C 65 22 136/74 96 08/08/21 07:37 08/08/21 07:37 08/08/21 07:37 08/08/21 07:37 08/08/21 07:37 Lab Results Blood Type / Crossmatch: No Data to Display Complete Blood Count: No Data to Display Complete Metabolic Panel: No Data to Display Liver Function Panel: No Data to Display Coagulation Panel: No Data to Display Cardiac Panel: No Data to Display Arterial Blood Gas: No Data to Display Venous Blood Gas: No Data to Display Pancreas Panel: No Data to Display Thyroid Panel: No Data to Display Infectious Disease: Coronavirus (COVID-19)(PCR) Negative (Negative) 08/06/21 08:39 08/06/21 Coronavirus 2019 Source Nasal/Nares 08/06/21 08:39 08/06/21 Blood Cultures: No Data to Display Toxicology Panel: No Data to Display Imaging and Studies Imaging and Studies Study information below may be from another EMR and interpreted by another provider. Please see original notes in EMR for more complete details. Stress Test Summary: Stress results: The rate-pressure product for the peak heart rate and blood pressure was 04602pi Hg/min. Stress ECG: EKG TRACING AT THE START OF EXCERCISE NOT VERY CLEAR- ELECTRODES REPLACED FOR A BETTER TRACING. TESTING ENDED IN 10 MINS, 21 SECS, DUE TO FATIGUE. MAX. HR WAS 150, 92% OF TARGET.NORMAL BLOOD PRESSURE RESPONSE. METS: 12.37 ECTOPY: RARE PVC NOTED. ANGINA: NO REPORTED CHEST PAIN OR PRESSURE. ISCHEMIA: NO SIGNIFICANT ST DEPRESSION FUNCTIONAL CAPACITY: ABOVE AVERAGE CAPACITY. 2017 Anesthesia Assessment and Plan Anesthesia History Personal History: No History of Anesthesia Complications Family History: No Family History of Anesthesia Complications Exercise Tolerance Exercise Tolerance: Metabolic Equivalents>4 Pertinent Negatives Pertinent Negatives: No Symptoms of GERD, No Major Cardiovascular Symptoms or Complaints, No Major Pulmonary Symptoms or Complaints and No History of CVA/TIA Cardiac & Pulmonary Exam Cardiac Exam: Normal S1/S2 Heart Sounds Pulmonary Exam: Clear Bilateral Breath Sounds Implantable Cardiac Device Does patient have a Pacemaker or an ICD?: No Airway Exam Known Difficult Airway: No Mallampati Class: 2 Mouth Opening: Normal (> 3cm) Thyromental Distance: Greater than 3 cm Neck Range of Motion: Full ROM Neck Circumference: Normal Teeth Condition: Normal Dentition ASA Classification ASA Score: ASA 2 Emergency Case?: No NPO Status NPO Status: NPO Clears >2 hours, Solids >8 hours Anesthesia Plan Resuscitation Status: Full Code Anesthesia Technique: General Anesthesia Airway Planned: Endotracheal Tube Pain Management: Surgeon and patient request nerve block Monitors Used: Standard Monitors Preoperative Comments:: Hx of seizure disorder, no seizure in greater than 3 years
--- NOTE | 2021-08-08 10:29 | W.ANESNERVE ---
Nerve Block Single Injection Procedure Date and Time Date Performed: 08/08/21 Procedure Start: 10:02 Location Where Procedure Performed Procedure Location: Day Surgery Unit Reason Performed: Postoperative Analgesia Requesting Provider: Vik Dent Timeout Performed Timeout Performed: Yes Monitoring Used ECG, Blood Pressure, SpO2 and See EMR for corresponding vital signs Sterility Sterility: Hand Hygiene, Surgical Cap, Surgical Mask, Sterile Gloves and Chlorhexidine Sedation Given During Procedure Sedation Given (Indicate Dose Given): Versed IV Dose:: 2 mg Patient Mental Status Patient Mental Status: Sedate with meaningful communication Nerve Block 1st Nerve Block: Laterality: Left Block Type: Interscalene Needle / Catheter Used: 100mm SonoPlex II Local Anesthetic Bolus (Indicate Dose Given): Lidocaine used for local infiltration of skin, Injected in 3-5ml increments after negative blood aspiration, Bupivacaine 0.5% Dose:: 10 ml and Exparel Dose:: 10 ml Additives (Indicate Dose Given): None Ultrasound: Sterile probe cover and gel used Ultrasound Image Saved?: Yes Nerve Stimulator: Not Used Paresthesia: Left (Resolved with needle redirection) Paresthesia Duration: Transient Procedure Tolerated: No Complications and Patient tolerated well Procedure Outcome: Successful Performed By: Nan Briceño
[2021-08-08] MEDS: ceFAZolin 2 GM/50 ML BAG IVPB (11:04)
[2021-08-08] MEDS: EPINEPHrine 30 MG/30 ML VIAL (13:45)
[2021-08-08] MEDS: fentaNYL 100 MCG/2 ML VIAL IVP ×2 (14:25→14:34)
--- NOTE | 2021-08-08 14:59 | W.ANESPOSTOP ---
Postoperative Evaluation Date, Time and Location Date Performed: 08/08/21 Time Performed: 14:50 Patient Location: Day Surgery Unit Vital Signs Most Recent Imported Vital Signs: Most Recent Vital Signs Temp Pulse Resp BP Pulse Ox 36.2 C L 64 18 112/55 L 95 08/08/21 14:43 08/08/21 14:43 08/08/21 14:43 08/08/21 14:43 08/08/21 14:43 Pain Score Most Recent Pain Score: Most Recent Pain Score Pain Level 2 08/08/21 14:43 Assessment Mental Status: Awake (Alert & Oriented to Patient Baseline) Airway and Respiratory Function: Patent airway with normal (patient baseline) respiratory exam Cardiovascular Function: Hemodynamically Stable Hydration Status: Adequately Hydrated Nausea & Vomiting: No Nausea or Vomiting Pain: Pain is tolerable per patient (armpit) Peripheral Nerve Block: Regional nerve block not resolved at time of post operative discharge
--- NOTE | 2021-08-08 15:31 | PDOC.DSDIS_ITS ---
Discharge Plan Disposition Patient Disposition: HOME Condition: Stable Discharge Details Reason For Visit: Left shoulder surgery Attending Provider: Vik Dent Primary Care Provider: Christina Lay Home Meds and New Rx's Prescriptions: New naproxen 250 mg tablet 250 - 500 mg PO BID PRNQty: 40 RF: 0 aspirin 81 mg tablet,delayed release (DR/EC) 81 mg PO DAILY 14 Days Qty: 14 RF: 0 oxycodone 5 mg tablet 5 - 10 mg PO Q4H MDD 30 mg PRN (Reason: moderate to severe pain) Qty: 18 RF: 0 Continued acetaminophen 500 mg tablet 500 - 1,000 mg PO BID MDD 2000 mg PRN (Reason: pain) Qty: 90 RF: 0 nitrofurantoin macrocrystal [Macrodantin] 100 mg capsule 100 mg PO ONCE Qty: 30 RF: 3 cholecalciferol (vitamin D3) 1,000 UNIT tablet 1,000 unit PO DAILY RF: 0 milk thistle seed extract 200 MG capsule 480 mg PO DAILY RF: 0 atenolol 25 mg tablet 12.5 mg PO DAILY Qty: 15 RF: 0 topiramate 100 mg tablet 100 mg PO BID Qty: 180 RF: 3 folic acid 1 MG tablet 1 mg PO DAILY RF: 0 Discharge Instructions Additional Instructions: Surgery: Left shoulder arthroscopy with rotator cuff repair, biceps tenodesis, extensive debridement, and subacromial decompression. Activity: For 6 weeks, you should keep your arm at your side in a neutral position at all times except for physical therapy. Do not try to lift or raise your arm using your own muscles. You should use the sling whenever you are out of the house. You may have to adjust the abduction pillow or remove it for comfort. At home it is best to remove the sling and rest the arm on a pillow at your side or support the operative side with your other hand. You may allow the arm to dangle at your side. A physical therapy prescription will be sent electronically to begin in about 3 weeks. Prescriptions: Aspirin 81 mg take 1 daily to prevent a blood clot for 2 weeks Naproxen 250 mg take 1-2 every 12 hours with a meal as needed for moderate pain Oxycodone 5 mg take 1-2 every 4-6 hours as needed for severe pain You may use [id number] Tylenol (acetaminophen) as needed for mild pain. These pain medications may be taken all at once or in different combinations as needed. Also, recommend Colace (docusate) as a stool softener as surgery and pain medicine cause constipation. Dressings: Remove shoulder bandage after 3 days. Leave the sticky Steri-Strips in place until they fall off or remove them after you shower. Cover the incisions with Band-Aids or leave them open to air. You may shower after 5 days. Follow-up: 10-[address] Dent You may take off the leg compression stockings this evening at home. You may also leave them on a few days longer if you have a history of leg swelling or edema. Let us know right away if you develop any redness, drainage, fevers, chest pain, or trouble breathing. Do not drink alcohol or drive for at least 24 hours after anesthesia. Please call the office during business hours with any questions or concerns. Stand Alone Forms: Anesthesia Discharge Inst., Anes.Nerve Block Instructions Referrals: Vik Dent MD [ [facility] STAFF PHYSICIAN] - Discharge Orders Discharge Orders: Discharge Order (Routine); Ordered 08/08/21 Ordered By: Vik Dent DS: Diagnosis Discharge Diagnosis (1) Bursitis of left shoulder: Status: Acute (2) Tendinitis of long head of biceps brachii of left shoulder: Status: Acute (3) Adhesive capsulitis of left shoulder: Status: Acute (4) Traumatic tear of left rotator cuff: Status: Acute
--- NOTE | 2021-08-08 16:07 | W.PM.OP ---
Date of service: 08/08/21 Time of Service: 12:00 Operative Note Operative Note DATE OF PROCEDURE: 08/08/21 PRE-OP DIAGNOSIS: Right: 1. Rotator cuff tear 2. LHB tendinopathy 3. Bursitis 4. Adhesive capsulitis POST-OP DIAGNOSIS: same PROCEDURE: Right: 1. Rotator cuff repair, CPT# 48690. This involved repair of the subscapularis and supraspinatus using anchors and sutures to reattach the rotator cuff back to the footprint of the lesser and greater tuberosity. 2. Arthroscopic biceps tenodesis, CPT# 52885. This involved arthroscopically suturing and reattaching the long head of the biceps tendon to the proximal humerus at the superior margin of the bicipital groove with a screw at the correct tension. 3. Extensive debridement, CPT# 96491. This involved using arthroscopic hand instruments, power instruments, and radiofrequency instruments to release the long head of the biceps tendon and debride areas of labral tearing, synovitis, and chondromalacia about the biceps groove within the glenohumeral joint anteriorly, superiorly and posteriorly. The MGHL and anterior capsule were also released to treat and prevent recurrent stiffness. Partial articular infraspinatus tearing was lightly debrided as well. 4. Subacromial decompression, CPT# 15937. This involved using arthroscopic power instruments and a radiofrequency wand to complete a bursectomy . 5. Manipulation under anesthesia, CPT #82113 The delinquent tax collection assistant was medically required in order to help assist in techniques above, which require positioning the arm, holding the arthroscope, and manipulating multiple instruments and sutures at the same time. This cannot be done without the help of an experienced delinquent tax collection assistant. SURGEON: Vik Dent ROLL FILLER: Sourav Rivera ANESTHESIA TYPE: General LMA/ETT and Primary Nerve Block Refer to Anesthesia Record ESTIMATED BLOOD LOSS: 15 PATHOLOGY: none sent COMPLICATIONS: None Patient was transported to: PACU Patient's condition: stable Implants: Arthrex: 4.75mm SwiveLocks x 1, 4.75mm Knotless SwiveLocks x 4 Indications: The patient was diagnosed with the above conditions and appropriately indicated for surgical intervention. Please see complete medical record for details. Findings: Exam under anesthesia: Terminally limited external rotation and forward elevation about 20 degrees each. Otherwise stable and full internal rotation. Glenohumeral joint: Profound synovitis anteriorly superiorly. Moderate chondromalacia about long head biceps tendon and superior bicipital groove with significant fraying of the injured articular segment biceps. Anterior and posterior labral fraying with degenerative type SLAP tearing about biceps tendon anchor. Upper margin partial subscapularis tear. Obvious full-thickness and moderately retracted supraspinatus rotator cuff tear with partial mild involvement articular sided infraspinatus. Relatively preserved remainder articular cartilage. Subacromial space: Significant bursitis. No significant subacromial bone spur. Full-thickness moderately retracted and scarred supraspinatus rotator cuff tear with delaminated layers. Intact infraspinatus. Procedure Description: In the operating room, general anesthesia was induced. Bilateral shoulders were examined. Left shoulder had residual stiffness. The correct patient, procedure, and side of the procedure were all verified to beginning. Left shoulder was gently guided using a short lever arm into full external rotation and forward elevation. After alternating and holding positions there was steady release of the residual adhesions allowing lutheran of full external rotation and forward elevation. These positions were maintained and alternated numerous times. There was no limitation to internal rotation. No instability. The patient was positioned in the beachchair position. All bony prominences were well-padded. Preoperative antibiotics were administered. The shoulder was prepped and draped in the usual sterile fashion. Starting through the posterior portal a standard complete diagnostic arthroscopy was performed of the glenohumeral joint including inspection of the long head of the biceps, anterior and superior labrum, subscapularis tendon, supraspinatus and infraspinatus tendons, and axillary recess. The glenoid and humeral head cartilage as well as the posterior labrum were inspected from an anterior viewing portal. Significant findings and interventions noted above. Rigid cannula was inserted anteriorly. Through the full-thickness supraspinatus tear a passport cannula was inserted at the superior anterior lateral margin of the acromion. An all-arthroscopic suprapectoral biceps tenodesis was performed through an anterior portal using a Loop N Tack method with a SutureTape FiberLink cinched around and through the tendon. The biceps was tenotomized from the labrum and withdrawn out the superior anterolateral portal for later repair with the subscapularis to the suture anchor at the superior margin of the bicipital groove. The anterior portal was used to prepare the lesser tuberosity for bone tendon healing. The subscapularis was inspected and felt to have a tear worth repairing despite the pre-existing external rotation stiffness. A single FiberLink was placed in cinch mode using a 90 degree lasso through the superior margin of the subscapularis. These repair stitch had good tissue hole. The arm position was optimized for repair. The undersized punch was used followed by bringing both the subscapularis repair and biceps tenodesis sutures through the suture anchor eyelet. The suture anchor was deployed with good fixation strength and appropriate tension on both stitches. There was no restriction to external rotation after repair. The [facility] and anterior capsule were released using arthroscopic scissors to prevent recurrent post operative stiffness. Starting through the posterior portal, the arthroscope was directed into the subacromial space. A lateral 50 yard line lateral portal was created and Nelly inserted. A combination of power instruments and a radiofrequency ablator were used to debride bursitis anteriorly, posteriorly, and laterally as well as expose the undersurface of the acromion. Coracoacromial ligament was preserved. The bursectomy was completed viewing laterally and working from posteriorly and the rotator cuff was thoroughly inspected with findings noted above. A posterior superior lateral passport cannula was inserted. The moderately retracted delaminated supraspinatus rotator cuff tear was readily identified and debrided to a stable margin. The liberator's and elevators were used to achieve appropriate tissue excursion without undue tension over the greater tuberosity. The greater tuberosity was debrided to optimize bone tendon healing over the exposed footprint. A knotless speed bridge construct was chosen and the medial row anchors placed anteriorly and posteriorly at the margins of the repair again using the undersized punch to ensure best suture anchor bone fixation strength. The repair FiberTape's and knotless repair sutures were all brought through the appropriate levels of the rotator cuff medially using a suture handoff technique with the 90 degree lasso carefully placed through both layers of the delaminated rotator cuff tear shuttling a FiberLink and then using FiberLink to shuttle all 5 sutures anteriorly and posteriorly. These were withdrawn out the anterior and posterior portals. A single tape from anterior and posterior was then brought out laterally and the undersized punch used to place the anterior lateral row knotless anchor. Appropriate tension was maintained on the rotator cuff repair and suture anchor deployed. The knotless repair suture was then brought out the posterior superior lateral cornea and the self retrieving suture passer used to deliver it through the anterior margin dogear tissue before passing through the suture anchor and securing this tissue more anteriorly. This was repeated similarly with the posterior lateral row anchor and incorporating posterior dogear adjacent tissue. There is excellent repair and compressive strength considering chronicity of the tear and delaminated layers with good fixation anteriorly and posteriorly to adjacent tissue. The knotless repair sutures from the medial row anchors were then used to ensure best construct strength in a knotless double rose marie mechanism with each repair suture passed through the corresponding anterior to posterior and posterior to anterior anchor and sequentially tightened. The repair was tested through range of motion and inspected demonstrating excellent reduction and compressive fixation strength. The shoulder was drained of arthroscopic fluid. All portal sites were copiously irrigated. These incisions were closed using 3-0 Monocryl in a buried fashion and then covered with Mastisol, Steri-Strips, Xeroform, dry gauze, and ABDs. The dressings were covered and secured with Medipore tape. The operative extremity was placed into a sling for immobilization. The patient awoke from anesthesia without complication and was transferred to the recovery room in a stable condition.
== END 2021-08-08 16:20 | disposition home or self-care (01) ==
LOC: SUR 07:32
PROVIDERS: PCP Nurse Practitioner; Visit Provider Student in an Organized Health Care Education/Training Program
PROC: (CPT 29827; principal; 2021-08-08 10:00)
DX: M75.52 Bursitis of left shoulder (principal); M75.02 Adhesive capsulitis of left shoulder; M75.22 Bicipital tendinitis, left shoulder; S46.012A Strain of muscle(s) and tendon(s) of the rotator cuff of left shoulder, initial encounter; X58.XXXA Exposure to other specified factors, initial encounter
CPT/HCPCS: 29827; 29828; 29823; 29826; 76942; J0690; J1100; J1885; J2001; J2250; J2405; J2704; J3010

== ENCOUNTER 2023-01-11 02:45 | Outpatient (CLI) | payer OTHER, SELFPAY ==
--- NOTE | 2023-01-11 | DI.MAMMO_ITS ---
Exam(s) MAMMO SCREENING EXAM: MAMMO SCREENING CLINICAL HISTORY: SCREENING, Z12.31. TECHNIQUE: Bilateral full field digital CC and MLO mammographic images were obtained with 3D tomosyn thesis and utilizing computer aided detection (CAD). COMPARISON: Prior mammograms were reviewed. FINDINGS: There has been no significant change in the appearance and distribution of the fibroglandular tissue which is again noted be dense anteriorly.. There are no obvious new spiculated masses nor malignant appearing microcalcification groups. Benign calcifications and benign vascular calcifications are again noted bilaterally. There is no significant architectural distortion nor skin thickening-retraction. IMPRESSION: No radiographic evidence of malignancy. BI-RADS Category 1 - Negative Breast Density - Category C - Heterogeneously dense Breast density Category C or D implies that the patient has dense breast tissue. Dense breast tissue can make it harder to find cancer on a mammogram. Dense breast tissue is also associated with an incr eased risk of breast cancer. This information about the result of the mammogram report was provided to the patient to raise their awareness. Use this report when you speak with the patient about their risks for breast cancer, which includes their family history. At that time, you may recommend additional screening tests (Ultrasoun d or MRI) as these tests may add significant information. A negative radiographic report should not delay biopsy if a dominant or clinically suspicious mass is present. Up to ten percent of cancers are not identified on mammography. A negative report may reinforce clinical impression. Adenosis and dense breasts may obscure an underlying neoplasm. False positive reports average 6 to 10%. Patient will receive a letter notifying them of these results.
== END 2023-01-11 03:05 ==
PROVIDERS: PCP Nurse Practitioner; Visit Provider Nurse Practitioner
DX: Z12.31 Encounter for screening mammogram for malignant neoplasm of breast (principal)
CPT/HCPCS: 77063; 77067

== ENCOUNTER 2023-01-22 00:16 | Outpatient (CLI) | payer OTHER, SELFPAY ==
--- NOTE | 2023-01-22 11:02 | DI.DEXA_ITS ---
Exam(s) XR DEXA BONE DENSITY W/WO RERE EXAM: XR DEXA BONE DENSITY W/WO RERE CLINICAL HISTORY: MENOPAUSAL Z78.0 SCREENING FOR OSTEOPOROSIS TECHNIQUE: COMPARISON: No exams were available for comparison FINDINGS: Lateral Spine Image: Unremarkable. No compression deformities identified. Left hip: Total T-Score: -1.0 Total Z-Score: 0.2 T- and Z-scores: Within normal limits. Note is made of osteopenia in the femoral neck with a T-score of -1.4. Lumbar Spine: Total T-Score: -1.1 Total Z-Score: 0.6 T- and Z-scores: Findings are consistent with osteopenia. Osteoporosis is seen in the right forearm with a total T-score of -3.0 and a Z-score of -1.4. IMPRESSION: 1. No evidence of osteoporosis is seen in the lumbar spine or left hip. 2. Osteoporosis in the right forearm.
== END 2023-01-22 00:36 ==
LOC: DI 00:17
PROVIDERS: PCP Nurse Practitioner; Visit Provider Nurse Practitioner
DX: Z13.820 Encounter for screening for osteoporosis (principal); Z78.0 Asymptomatic menopausal state; M80.031A Age-related osteoporosis with current pathological fracture, right forearm, initial encounter for fracture
CPT/HCPCS: 77080

== ENCOUNTER → 2024-01-26 11:00 | Outpatient (BNVA) | payer MEDICARE, SELFPAY | PROVIDERS: PCP Nurse Practitioner; Visit Provider Psychiatry & Neurology Neurology | DX: G40.909 Epilepsy, unspecified, not intractable, without status epilepticus (principal); F10.230 Alcohol dependence with withdrawal, uncomplicated | CPT/HCPCS: 99213 ==